=== PATIENT | male | born 1985 | race Caucasian/White ===

== ENCOUNTER 2016-08-13 19:10 | Inpatient (IN) | payer OTHER ==
[2016-08-13 20:27] LABS: % IMMATURE GRANULYOCYTES 1.7 % (0.0-1.1); ABSOLUTE IMMATURE GRANULOCYTES 0.15 10^3/uL (0.00-0.10); ADD DIFF? NO; ADD MORPH? NO; ADD SCAN? NO; ATYPICAL LYMPHOCYTE FLAG 0 (0-99); FRAGMENT RBC FLAG 10 (0-99); HEMATOCRIT 46.4 % (40.0-51.0); HEMOGLOBIN 15.5 g/dL (13.7-17.5); LEFT SHIFT FLG 10 (0-99); LIPEMIA HEMOLYSIS FLAG 80 (0-99); MEAN CELL HEMOGLOBIN 31.6 pg (27.9-34.1); MEAN CELL HEMOGLOBIN CONCENTR. 33.4 g/dL (32.4-36.7); MEAN CELL VOLUME 94.5 fL (81.5-99.8); MEAN PLATELET VOLUME 11.7 fL (8.7-11.7); PLATELET CLUMPS FLAG 20 (0-99); PLATELET COUNT 257 10^3/uL (150-400); RED BLOOD CELL COUNT 4.91 10^6/uL (4.40-6.38); RED CELL DISTRIBUTION WIDTH 13.1 % (11.5-15.2)
[2016-08-13 20:40] LABS: ANION GAP 14 mEq/L (8-16); CALCIUM 10.7 mg/dL (8.5-10.4); CARBON DIOXIDE 28 mEq/l (22-31); CHLORIDE 102 mEq/L (97-110); CREATININE 0.9 mg/dL (0.7-1.3); ETHANOL SERUM < 10 mg/dL (0-10); GLOMERULAR FILTRATION RATE > 60; GLUCOSE 87 mg/dL (70-100); SODIUM 144 mEq/L (134-144)
--- NOTE | 2016-08-13 21:44 | EDPHY ---
[id number] Vaccine: Yes Current Tetanus Diphtheria and Acellular Pertussis (TDAP): Yes Tetanus Vaccine Date: 2006 - Medical/Surgical History Hx Asthma: Yes Hx Chronic Respiratory Disease: No Hx Diabetes: No Hx Cardiac Disease: No Hx Renal Disease: No Hx Cirrhosis: No Hx Alcoholism: Yes Hx HIV/AIDS: No Hx Splenectomy or Spleen Trauma: No Other PMH: Medical- autism, depression, hypothyroid, ECT therapy. etoh, substance abuse, cutter, GERD, Reports recent Dx of Bipolar II & asthma. Surg- orbital, wrist, tonsilectomy, eustachian tubes - Social History Smoking Status: Former smoker HPI/ROS: Chief complaint: Suicidal ideation with plan History of present illness: This is a 30-year-old male who presents to the emergency department for evaluation and treatment of suicidal ideation with plan. Patient reports increasing thoughts of killing himself. He reports he wants to cut himself. He has not acted on this at this time. He denies homicidal ideation. He denies illness or injury. Review of systems: 10 point review of systems was obtained and other than described above was negative (Tawanda Ward) - Physical Exam Exam: General Appearance: Alert, nontoxic. Eyes: Pupils equal and round no pallor or injection. ENT, Mouth: Mucous membranes moist. Respiratory: There are no retractions, lungs are clear to auscultation. Cardiovascular: Regular rate and rhythm. Gastrointestinal: Abdomen is soft and non tender, no masses, bowel sounds normal. Neurological: Alert and oriented. Strength and sensation intact and symmetrical. Skin: Warm and dry, no rashes. Musculoskeletal: Neck is supple non tender. Extremities are symmetrical, full range of motion. Psychiatric: Patient is oriented X 3, there is no agitation. (Tawanda Ward) Constitutional: Initial Vital Signs Temperature (C) 37 C 08/13/16 19:13 Heart Rate 105 H 08/13/16 19:13 Respiratory Rate 20 08/13/16 19:13 Blood Pressure 160/101 H 08/13/16 19:13 O2 Sat (%) 95 08/13/16 19:13 O2 Delivery Mode Room Air Allergies/Adverse Reactions: clozapine [From Clozaril] Allergy (Verified 11/06/15 09:33) POLLEN Allergy (Mild, Uncoded 11/06/15 09:33) SEASONAL ALLERGY Home Medications: Medication Instructions Recorded Levothyroxine [Synthroid 150 mcg 150 mcg PO DAILY10 #0 tab 10/13/15 (*)] Pravastatin Sodium [Pravachol] 20 mg PO DAILY #0 tab 10/13/15 Naltrexone HCl [Revia] 50 mg PO HS #0 tab 11/17/15 Prazosin HCl [Minipress 5mg (*)] 5 mg PO HS #0 cap 11/17/15 Zolpidem Tartrate [Ambien 5MG (*)] 10 mg PO HS #0 tab 11/17/15 Cholecalciferol Vit D3 [Vitamin D3 10,000 units PO DAILY 08/13/16 2000 units tab (OTC)] Lansoprazole [Prevacid] 30 mg PO DAILY 08/13/16 [place] Carbonate ER [Eskalith Cr 1,125 mg PO HS 08/13/16 450 mg (*)] Meloxicam 15 mg PO DAILY 08/13/16 QUEtiapine FUMARATE [Seroquel 200 200 mg PO HS 08/13/16 mg (*)] Albuterol [Proventil Inhaler HFA 1 - 2 puffs IH DAILY PRN 08/14/16 (*)] Divalproex ER [Depakote ER 500 MG 1,500 mg PO HS 08/14/16 (*)] Divalproex ER [Depakote ER 500 MG 500 mg PO DAILY 08/14/16 (*)] Fluticasone/Salmeter 100/50Mcg 1 puffs IH BID 08/14/16 [Advair 100/50 (*)] Herbals/Supplements -Info Only 1 ea PO DAILY 08/14/16 QUEtiapine FUMARATE [Seroquel 100 100 mg PO TID PRN 08/14/16 mg (*)] Medical Decision Making ED Course/Re-evaluation: Patient seen under the supervision of my secondary supervising physician Dr. Aditya Looney. Patient presents to the emergency department with suicidal ideation with plan. Patient medically evaluated and cleared for psychiatric evaluation. This is pending at time of dictation. Care of patient turned over to my attending physician Dr. Cristo Sloan at end of shift. (Tawanda Ward) 2330 Care assumed by me from EDMAR Ward pending Mental Health evaluation. [address] Cantu pending evaluation. No issues during care overnight during my shift. (Cristo Sloan) Care assumed 700 plan for psych evaluation this morning, on a detainer. 720: Patient is accepted at [facility] Dr. Elias Caicedo for inpatient psychiatric hospital but not currently available at [facility], stable for transfer. 730: In consultation with psychiatric evaluation team the patient is placed on a mental health hold at this time for worsening suicidal ideation and uncertainty in ensuring own safety outside hospital setting. (Zhao Cantu) I did not see this patient while he was in the emergency department. However his care was discussed with the PA while the patient was in the department. I agree with treatment plan and management (Aditya Looney) Differential Diagnosis: Included but not limited to substance abuse, schizophrenia, bipolar, depression (Tawanda Ward) - Data Points Laboratory Results: Laboratory Results 08/13/16 20:15 08/13/16 20:15 Medications Given: Discontinued Medications Lansoprazole (Prevacid Susp (Peds)) 30 mg PO DAILY [facility] Stop: 02/10/17 13:29 Last Admin: 08/14/16 14:44 Dose: Not Given Lorazepam (Ativan) 0.5 - 1 mg PO Q6HRS PRN PRN Reason: Anxiety, Able to Take PO Stop: 02/10/17 13:23 Last Admin: 08/16/16 05:29 Dose: 1 mg Miscellaneous Medication (Meloxicam [Meloxicam]) 15 mg PO DAILY [facility] Stop: 02/10/17 13:29 Last Admin: 08/14/16 20:35 Dose: Not Given Departure - Departure Disposition: [facility] IP Clinical Impression: Bipolar disorder Condition: Good
[2016-08-13 21:52] LABS: LITHIUM 0.4 mEq/L (0.6-1.2)
[2016-08-14] MEDS ORDERED: OLANZapine DISINTEGR 10 MG TAB PO PRN (13:24)
[2016-08-14] MEDS ORDERED: NICOTINE POLACRILEX 2 MG GUM B PRN (13:24)
[2016-08-14] MEDS ORDERED: MAG HYDROX/AL HYDROX/SIMETH 30 ML UDCUP PO PRN (13:24)
[2016-08-14] MEDS ORDERED: ACETAMINOPHEN 325 MG TAB PO PRN (13:24)
[2016-08-14] MEDS ORDERED: MAGNESIUM HYDROXIDE 30 ML UDCUP PO PRN (13:24)
[2016-08-14] MEDS ORDERED: QUEtiapine FUMARATE 100 MG TAB PO PRN (13:27)
[2016-08-14] MEDS ORDERED: ALBUTEROL 60 PUFFS/8 GM MDI IH PRN (13:27)
[2016-08-14] MEDS ORDERED: LANSOPRAZOLE SUSP 3 MG/ML UDSYR (Peds) PO SCH (13:30)
[2016-08-14] MEDS ORDERED: NON-FORMULARY NEW DRUG (Meloxicam [Meloxicam] 15 MG) PO SCH (13:30)
[2016-08-14] MEDS: DIVALPROEX ER 500 MG TAB PO SCH ×2 (14:24→20:28)
[2016-08-14] MEDS: PRAVASTATIN SODIUM 20 MG TAB PO SCH (14:24)
[2016-08-14] MEDS: LEVOTHYROXINE 150 MCG TAB PO SCH (14:24)
[2016-08-14] MEDS: CHOLECALCIFEROL VIT D3 2,000 UNITS TAB/CAP PO SCH (14:24)
[2016-08-14] MEDS: LORazepam 0.5 MG TAB PO PRN ×2 (14:24→20:27)
--- NOTE | 2016-08-14 19:03 | BCON ---
[f rep st] BEHAVIORAL HEALTH CONSULTATION INTERNAL MEDICINE CONSULTATION NOTE DATE OF CONSULTATION: 08/14/2016 REFERRING PHYSICIAN: Carol Calderon MD REASON FOR CONSULTATION: Medical clearance for inpatient behavioral health stay. HISTORY OF PRESENT ILLNESS: Mr. Cabral came to the emergency department due to suicidal ideation and thoughts of self-harm. He reported that he was at the peak of a manic episode. He was evaluated by the mental health team and admitted for further psychiatric care. He is currently without any acute medical complaints. PAST MEDICAL HISTORY: 1. Asthma. 2. Gastroesophageal reflux disorder. 3. Dyslipidemia. 4. Hypothyroidism. 5. Clostridium difficile diarrhea. 6. Seasonal allergies. 7. Aspiration pneumonia. 8. History of polysubstance abuse. 9. Central auditory processing disorder. 10. Obstructive sleep apnea. PAST SURGICAL HISTORY: 1. Tonsillectomy. 2. Eustachian tube placements. 3. Bilateral wrist ORIF. 4. Repair of a facial fracture. MEDICATIONS: At home: 1. Divalproex ER 500 mg daily and 1500 mg q.h.s. 2. Albuterol 1-2 puffs daily p.r.n. 3. Fluticasone/salmeterol 1 puff b.i.d. 4. Zolpidem 10 mg q.h.s. 5. Prazosin 5 mg q.h.s. 6. Pravastatin 20 mg daily. 7. Naltrexone 50 mg q.h.s. 8. Levothyroxine 150 mcg daily. 9. Quetiapine 100 mg t.i.d. p.r.n. and 200 mg q.h.s. 10. Meloxicam 50 mg daily. 11. Arbela 1125 mg p.o. q.h.s. 12. Lansoprazole 30 mg p.o. daily. 13. Cholecalciferol 12090 units p.o. daily. ALLERGIES: There is an allergy listed to clozapine. SOCIAL HISTORY: He lives in a [facility] supported living situation. He has a history of alcohol and tobacco, but has been abstinent from both of these. Alcohol he reports for 3 and half years and tobacco most recently with an E cigarette, which he stopped using in November of last year. FAMILY HISTORY: Noncontributory. REVIEW OF SYSTEMS: Other than his thoughts of self-harm, 10-point review of systems was conducted and was negative. He had been intentionally losing weight , but reports this has been a plateau and he intends to get back to the gym to lose more weight once his acute psychiatric condition is stabilized. PHYSICAL EXAM: VITAL SIGNS: Blood pressure is 142/82, and has ranged as high as 161/105 and as low as 137/71 over the past 24 hours or so since he presented to the emergency department. Heart rate is 94, respiratory rate is 16 , oxygen saturation is 94% on room air, temperature is 36.6 degrees centigrade. His weight was 106.6 kg for a body mass index of 30. GENERAL: This is a well-nourished, well-developed, obese man appears chronologic age, cooperative, in no acute distress. HEENT: Extraocular movements are intact. Pupils are equal, round and reactive to light. Mucous membranes are moist. Dentition is in good condition. NECK: Supple. HEART: There is a regular rate and rhythm with no murmurs, rubs, or gallops. LUNGS: Clear to auscultation bilaterally. ABDOMEN: Soft, nontender, nondistended with normoactive bowel sounds. EXTREMITIES: There is no cyanosis, clubbing, or edema. Radial and dorsalis pedis pulses are 2+ bilaterally. NEUROLOGIC: He is alert and oriented x3. He has poor eye contact and a flat affect. Cranial nerves 2-12 are grossly intact. There is no focal weakness. Sensation is intact to light touch. LABORATORY DATA: Laboratory studies drawn in the emergency department: CBC was overall within normal limits. There was a very minor relative elevation of absolute monocytes of no clinical significance. Serum chemistry revealed normal renal function and electrolytes with the exception of a slightly high calcium at 10.7. Phosphorus was normal at 4.4. Toxicology in the serum revealed a low lithium level of 0.4 and absent ethyl alcohol. Urine toxicology was negative for any substances of abuse. ASSESSMENT AND PLAN: 1. Mental health issues: Pending further evaluation and management per Psychiatry the mental health team. 2. Obesity with recent weight loss: Encouraged him to continue his diet and exercise. He reports that he has given up sugary drinks, which has made a difference, and it is hoped that he will be able to continue to lose weight. 3. Obstructive sleep apnea with recent sleep study: He reports that he is due for 1 more sleep study to finally get him going on CPAP at the end of this month and this would be greatly in his best interest. 4. Hypertension versus elevated blood pressure: He is on Prazosin. If his blood pressure remains elevated, would advise starting a first-line agent such as a calcium channel nicola, ERIN-inhibitor, or diuretic. Might be cautious regarding diuretic with concurrent lithium therapy. Continue to monitor his blood pressure. 5. Dyslipidemia: Would continue his pravastatin. 6. Asthma: Would continue his inhalers. 7. Hypothyroidism: Continue levothyroxine. 8. Hypercalcemia: This is mild. He has no symptoms. It might be related to lithium therapy and no further evaluation is indicated at present. I see no medical contraindications to Mr. Cabral's continued stay in the inpatient behavioral health unit, or to any psychiatric medications or procedures. Thank you very much for including me in the care of Mr. Cabral, and please do not hesitate to contact me or the hospitalist service should there be need for further medical evaluation. /[id number]/MODL MTDD
[2016-08-14] MEDS: FLUTICASONE/SALMETER 100/50MCG DISKUS IH SCH ×3 (20:25→20:36)
[2016-08-14] MEDS: LITHIUM CARBONATE ER 450 MG TAB PO SCH (20:27)
[2016-08-14] MEDS: QUEtiapine FUMARATE 200 MG TAB PO SCH (20:29)
[2016-08-14] MEDS: PRAZOSIN HCL 5 MG CAP PO SCH (20:29)
[2016-08-14] MEDS: ZOLPIDEM TARTRATE 5 MG TAB PO SCH (20:29)
[2016-08-14] MEDS: NALTREXONE HCL 50 MG TAB PO SCH (20:29)
[2016-08-14] MEDS: Meloxicam [Meloxicam] 15 MG PO SCH (20:29)
[2016-08-15] MEDS: DIVALPROEX ER 500 MG TAB PO SCH ×2 (08:32→20:57)
[2016-08-15] MEDS: CHOLECALCIFEROL VIT D3 2,000 UNITS TAB/CAP PO SCH (08:33)
[2016-08-15] MEDS: PRAVASTATIN SODIUM 20 MG TAB PO SCH (08:33)
[2016-08-15] MEDS: PANTOPRAZOLE SODIUM 40 MG TAB PO SCH (08:34)
[2016-08-15] MEDS: Meloxicam [Meloxicam] 15 MG PO SCH (08:34)
[2016-08-15] MEDS: FLUTICASONE/SALMETER 100/50MCG DISKUS IH SCH ×2 (08:35→21:02)
[2016-08-15] MEDS ORDERED: LANSOPRAZOLE SUSP 30MG/10ML UDSYR (Adult) PO SCH (09:00)
[2016-08-15] MEDS: LEVOTHYROXINE 150 MCG TAB PO SCH (10:50)
[2016-08-15] MEDS: LORazepam 0.5 MG TAB PO PRN ×2 (11:06→17:14)
--- NOTE | 2016-08-15 11:43 | SOAPPROG ---
SOAP Progress Note Assessment/Plan: Assessment: Pt is a 30 y/o S C male known well to this MD who has a hx of self harm who felt like harming self and was put on an M1. Plan:Pt contracts for safety but has / SI will con't current meds-no current sx of shahnaz/psychosis at this time 08/15/16 11:40 Subjective: "Terrible. I did not sleep well." Objective: Vital Signs Temp Pulse Resp BP Pulse Ox 36.4 C 97 14 149/70 H 96 08/15/16 02:58 08/15/16 02:58 08/15/16 02:58 08/15/16 02:58 08/15/16 02:58 Pt is A+O x4 mood-depressed/anxious affect-blunted denies A/V H + SI but contracts for safety thoughts-logical, concrete speech-monotone conc-fair memory-intact no PADMA no sx psychosis/shahnaz I/J-fair-good - Time Spent With Patient Time Spent With Patient: 25' - Pending Discharge Pending Discharge Within 24 Hours: No Pending Discharge Within 48 Hours: No ICD10 Worksheet Patient Problems: Problems Problem Status Diagnosed Bipolar disorder Acute Asperger's syndrome Acute Bipolar disorder with severe shahnaz Acute Depression Acute Manic behavior Acute allergy to clozapine Acute
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
[2016-08-15] MEDS: LITHIUM CARBONATE ER 450 MG TAB PO SCH (20:57)
[2016-08-15] MEDS: QUEtiapine FUMARATE 200 MG TAB PO SCH (20:57)
[2016-08-15] MEDS: PRAZOSIN HCL 5 MG CAP PO SCH (20:58)
[2016-08-15] MEDS: NALTREXONE HCL 50 MG TAB PO SCH (20:58)
[2016-08-15] MEDS: ZOLPIDEM TARTRATE 5 MG TAB PO SCH (20:58)
[2016-08-16] MEDS: LORazepam 0.5 MG TAB PO PRN ×3 (05:29→15:12)
[2016-08-16] MEDS: Meloxicam [Meloxicam] 15 MG PO SCH (08:22)
[2016-08-16] MEDS: FLUTICASONE/SALMETER 100/50MCG DISKUS IH SCH ×2 (08:22→21:01)
[2016-08-16] MEDS: DIVALPROEX ER 500 MG TAB PO SCH ×2 (08:23→21:01)
[2016-08-16] MEDS: PRAVASTATIN SODIUM 20 MG TAB PO SCH (08:24)
[2016-08-16] MEDS: PANTOPRAZOLE SODIUM 40 MG TAB PO SCH (08:24)
[2016-08-16] MEDS: CHOLECALCIFEROL VIT D3 2,000 UNITS TAB/CAP PO SCH (08:24)
[2016-08-16] MEDS: LEVOTHYROXINE 150 MCG TAB PO SCH (09:12)
--- NOTE | 2016-08-16 10:23 | SOAPPROG ---
SOAP Progress Note Assessment/Plan: Assessment: Pt is a 30 y/o S C male known well to this MD who has a hx of self harm and SI and Aspergers who felt like harming self and was put on an M1. Plan:Pt put on a 1: 1 as had active SI after having a nightmare of using drugs and pulled his hair and punched the wall will con't 02 at night-pt states it helped him sleep better will change Ativan to Q4 hours prn anxiety pt has agreed to sign in VOL 08/16/16 10:19 Subjective: "I had a nightmare and self harmed last night." Objective: Vital Signs Temp Pulse Resp BP Pulse Ox 36.3 C 77 16 122/60 H 99 08/16/16 06:19 08/16/16 06:19 08/16/16 06:19 08/16/16 06:19 08/16/16 06:19 Pt is A+O x4 mood-neutral affect-blunted denies A/V H no delusions slept 7 hours but had a nightmare thoughts-concrete, logical speech-monotone + active SI and is on a 1:1 memory-intact conc-fair no sx psychosis/shahnaz no HI I/J-fair-good - Time Spent With Patient Time Spent With Patient: 25' - Pending Discharge Pending Discharge Within 24 Hours: No Pending Discharge Within 48 Hours: No ICD10 Worksheet Patient Problems: Problems Problem Status Diagnosed Bipolar disorder Acute Asperger's syndrome Acute Bipolar disorder with severe shahnaz Acute Depression Acute Manic behavior Acute allergy to clozapine Acute
[2016-08-16] MEDS: LITHIUM CARBONATE ER 450 MG TAB PO SCH (21:02)
[2016-08-16] MEDS: ZOLPIDEM TARTRATE 5 MG TAB PO SCH (21:02)
[2016-08-16] MEDS: PRAZOSIN HCL 5 MG CAP PO SCH (21:02)
[2016-08-16] MEDS: QUEtiapine FUMARATE 200 MG TAB PO SCH (21:03)
[2016-08-16] MEDS: NALTREXONE HCL 50 MG TAB PO SCH (21:03)
[2016-08-17] MEDS: CHOLECALCIFEROL VIT D3 2,000 UNITS TAB/CAP PO SCH (09:44)
[2016-08-17] MEDS: DIVALPROEX ER 500 MG TAB PO SCH ×2 (09:45→17:47)
[2016-08-17] MEDS: LEVOTHYROXINE 150 MCG TAB PO SCH (09:45)
[2016-08-17] MEDS: PRAVASTATIN SODIUM 20 MG TAB PO SCH (09:45)
[2016-08-17] MEDS: PANTOPRAZOLE SODIUM 40 MG TAB PO SCH (09:45)
[2016-08-17] MEDS: FLUTICASONE/SALMETER 100/50MCG DISKUS IH SCH ×2 (09:46→20:58)
[2016-08-17] MEDS: Meloxicam [Meloxicam] 15 MG PO SCH (09:46)
[2016-08-17] MEDS: LORazepam 0.5 MG TAB PO PRN ×2 (11:11→17:50)
--- NOTE | 2016-08-17 11:37 | SOAPPROG ---
SOAP Progress Note Assessment/Plan: Assessment: Pt is a 30 y/o S C male known well to this MD who has a hx of self harm and SI and Aspergers who felt like harming self and was put on an M1. Plan: D/C 1:1-pt sarahy for safety will con't 02 at night-pt states it helped him sleep better con't Ativan to Q4 hours prn anxiety pt is [facility] staff to come and see pt tomorrow 08/18/16 08/17/16 11:34 Subjective: pt feels more safe today and wants to take a shower Objective: Vital Signs Temp Pulse Resp BP Pulse Ox 36.7 C 110 H 16 134/73 H 94 08/17/16 09:30 08/17/16 09:30 08/17/16 09:30 08/17/16 09:30 08/17/16 09:30 Pt is A+O x4 mood-neutral affect-blunted no A/V H decrease SI-contracts for safety no HI no sx psychosis/shahnaz thoughts-logical speech-monotone no PADMA memory-intact slept 8+ hours good appetite I/J-fair - Time Spent With Patient Time Spent With Patient: 25' - Pending Discharge Pending Discharge Within 24 Hours: No Pending Discharge Within 48 Hours: Yes Pending Discharge Date: 08/19/16 Pending Discharge Time: 11:00 ICD10 Worksheet Patient Problems: Problems Problem Status Diagnosed Bipolar disorder Acute Asperger's syndrome Acute Bipolar disorder with severe shahnaz Acute Depression Acute Manic behavior Acute allergy to clozapine Acute
[2016-08-17] MEDS: LITHIUM CARBONATE ER 450 MG TAB PO SCH (17:47)
[2016-08-17] MEDS: QUEtiapine FUMARATE 200 MG TAB PO SCH (20:58)
[2016-08-17] MEDS: PRAZOSIN HCL 5 MG CAP PO SCH (20:58)
[2016-08-17] MEDS: ZOLPIDEM TARTRATE 5 MG TAB PO SCH (20:58)
[2016-08-17] MEDS: NALTREXONE HCL 50 MG TAB PO SCH (20:58)
[2016-08-18] MEDS: CHOLECALCIFEROL VIT D3 2,000 UNITS TAB/CAP PO SCH (08:02)
[2016-08-18] MEDS: DIVALPROEX ER 500 MG TAB PO SCH (08:02)
[2016-08-18] MEDS: PANTOPRAZOLE SODIUM 40 MG TAB PO SCH (08:03)
[2016-08-18] MEDS: PRAVASTATIN SODIUM 20 MG TAB PO SCH (08:03)
[2016-08-18 08:24] VITALS: BP 116/74; PULSE 78; RESP 18; TEMP 97.9; O2SAT 91
--- NOTE | 2016-08-18 11:13 | SOAPPROG ---
SOAP Progress Note Assessment/Plan: Assessment: Pt is a 30 y/o S C male known well to this MD who has a hx of self harm and SI and Aspergers who felt like harming self and was put on an M1. Plan: pt off 1:1 and denies any more SI will con't 02 at night-pt states it helped him sleep better con't Ativan to Q4 hours prn anxiety pt is [facility] staff to come and see pt today 08/18/16 11:10 Subjective: "Ready to discharge." Objective: Vital Signs Temp Pulse Resp BP Pulse Ox 36.6 C 78 18 116/74 91 L 08/18/16 08:07 08/18/16 08:07 08/18/16 08:07 08/18/16 08:07 08/18/16 08:07 Pt is A+O x4 mood-neutral affect-constricted denies S/H I denies A/V H thoughts-concrete, logical sleep/appetite-good no sx psychosis/shahnaz memory-intact no PADMA I/J-improved - Time Spent With Patient Time Spent With Patient: 25' - Pending Discharge Pending Discharge Within 24 Hours: Yes Pending Discharge Within 48 Hours: Yes Pending Discharge Date: 08/19/16 Pending Discharge Time: 11:00 ICD10 Worksheet Patient Problems: Problems Problem Status Diagnosed Bipolar disorder Acute Asperger's syndrome Acute Bipolar disorder with severe shahnaz Acute Depression Acute Manic behavior Acute allergy to clozapine Acute
[2016-08-18] MEDS: FLUTICASONE/SALMETER 100/50MCG DISKUS IH SCH (11:55)
[2016-08-18] MEDS: Meloxicam [Meloxicam] 15 MG PO SCH (11:55)
[2016-08-18] MEDS: LEVOTHYROXINE 150 MCG TAB PO SCH (11:56)
--- NOTE | 2016-08-18 14:56 | BDS ---
[f rep st] BEHAVIORAL HEALTH DISCHARGE SUMMARY CHIEF COMPLAINT: "I am having thoughts of self-harm." HISTORY OF PRESENT ILLNESS: Patient is a 30-year-old single male, well-known to this MD fr om multiple [address] admissions in the past, who presented to the [facility] with 2 staff from the [facility] with concerns about increased self-harm thoughts and suicidal thoughts, and being more triggered lately. Patient was placed on an M1 hold in the ED, which noted "the patient with numerou s prior psych hospitalizations and history of mood disorder, NOS, Asperger syndrome along with a his tory of suicide attempts and cutting behavior who was initially brought to [facility] by [facility] staff due to patient endorsing worsening suicidal ideation uncertainty ensuring his own safety outside hosp ital setting." Patient reported he recently thought a plan to steal a knife from the cooking group t o cut himself with. He did not act on this plan and informed [facility] staff about this. Patient re ports multiple stressors, such as his family considering tapering him from the [facility] in t he future, his parents not buying him a car. He recently got evicted and his parents had to buy him a condo, and an anniversary of his friend's . ADMISSION DIAGNOSES: [place] I: 1. Mood disorder, not otherwise specified. 2. Asperger syndrome. 3. Polysubstance use disorder, severe, in full sustained remission. [place] II: Borderline personality disorder. [place] III: 1. Recent diagnosis of sleep apnea. 2. History of asthma. 3. Gastrointestinal reflux disease. 4. Hypothyroidism. 5. Seasonal allergies. [place] IV: Chronic mental illness. [place] V: 20. HOSPITAL COURSE: Patient was kept on all his outpatient medications which were albuterol inhaler 2 puffs daily, vitamin D3 at 1000 units daily, Depakote 500 mg daily and 1500 mg q.h.s., Advair 1 puff b.i.d., lorazepam was started 0.5 to 1 mg q.4 hours p.r.n. anxiety which helped a lot. He was kept on Synthroid 150 mcg, lithium 1125 mg q.h.s., meloxicam 50 mg daily, ReVia 50 mg q.h.s., Pravachol 2 0 mg daily, Minipress 5 mg q.h.s., Seroquel 100 mg t.i.d. p.r.n., Seroquel 200 mg q.h.s., and Ambien 10 mg q.h.s. Patient reported Seroquel p.r.n. was not working, so Ativan was added with good result s. Patient needed to be on a 1-to-1 less than 24 hours for active thoughts of wanting to hurt himsel f. Patient is well-known to our unit and always will tell staff when he is feeling like he wants to hurt himself and asks for a 1-to-1. Patient's sleep and appetite improved. He did have a nightmare 1 night and pulled his hair and punched the wall; however, his sleep prior to admission was improved. He participated in some groups and activities. He was compliant with all meds. There were no symp toms of psychosis or shahnaz throughout his hospitalization. The only med change was Ativan was added with good results with no side effects. Patient signed in voluntarily when his M1 . [facility] staff came and saw him day of discharge and felt he was stable for discharge, and patient requested discharge. MENTAL STATUS ON DISCHARGE: Patient is alert and oriented x4. Mood is euthymic. Affect is constri cted. Patient denies suicidal or homicidal ideation. Denies auditory or visual hallucinations. Tho ughts are concrete and logical. Sleep and appetite are good. No symptoms of psychosis or shahnaz. Me matias intact. No loosening of associations. Insight and judgment are improved. Patient has classic symptoms of Asperger's disorder, such as poor social cues and poor social relatedness. DISCHARGE MEDICATIONS: Ativan 0.5 to 1 mg q.4 hours p.r.n. anxiety. DISCHARGE: Patient was discharged voluntarily to [facility] staff. He is psychiatrically and medical ly stable for discharge. He will follow up with Dr. Mcdonnell and the [facility] team. He was dischar [facility] voluntarily. /[id number]/MODL
== END 2016-08-18 14:15 | disposition home or self-care (01) | DRG 885 ==
LOC: BBEH 08-14 12:30
PROVIDERS: ADMIT Psychiatry & Neurology Psychiatry; ATTEND Psychiatry & Neurology Psychiatry
DX: F39 Unspecified mood [affective] disorder (principal); F84.5 Asperger's syndrome; E03.9 Hypothyroidism, unspecified; K21.9 Gastro-esophageal reflux disease without esophagitis; J45.909 Unspecified asthma, uncomplicated; G47.33 Obstructive sleep apnea (adult) (pediatric); E78.5 Hyperlipidemia, unspecified; Z87.01 Personal history of pneumonia (recurrent); Z87.891 Personal history of nicotine dependence; E66.9 Obesity, unspecified; Z68.30 Body mass index [BMI] 30.0-30.9, adult
CPT/HCPCS: 80305; G0480

== ENCOUNTER 2016-09-10 21:47 | Emergency (ER) | payer OTHER ==
[2016-09-10] MEDS ORDERED: LORazepam 2 MG/ML INJ IVP ONE (22:28)
--- NOTE | 2016-09-10 22:31 | EDPHY ---
H & P Stated Complaint: si thoughts of self harm Source: Patient, Other Exam Limitations: No limitations - Personal History Current Tetanus/Diphtheria Vaccine: Yes Current Tetanus Diphtheria and Acellular Pertussis (TDAP): Yes Tetanus Vaccine Date: 2006 - Medical/Surgical History Hx Asthma: Yes Hx Chronic Respiratory Disease: No Hx Diabetes: No Hx Cardiac Disease: No Hx Renal Disease: No Hx Cirrhosis: No Hx Alcoholism: Yes Hx HIV/AIDS: No Hx Splenectomy or Spleen Trauma: No Other PMH: Medical- autism, depression, hypothyroid, ECT therapy. etoh, substance abuse, cutter, GERD, Reports recent Dx of Bipolar II & asthma. Surg- orbital, wrist, tonsilectomy, eustachian tubes - Social History Smoking Status: Former smoker HPI/ROS: CHIEF COMPLAINT: Suicidal ideation HISTORY OF PRESENT ILLNESS: history of bipolar 2 with active suicidal ideation. He has a long history of this and has extensive care and help with this. Over the past week he has had increasing suicidal ideations. All today actually grabbed a pair of scissors to stab himself but then stopped. Give the scissors to his remaining contacted his counselors. Counts are bedside and brought him into the emergency department for evaluation and treatment. He is well established in this system and is voluntarily here. There is no M1. Reports taking this over the past week with worsening thoughts. He did not actually harm himself he did not take any pills. The patient has extensive outpatient care including group therapy as he also has Asperger's syndrome. He denies any other specific complaints. He is aware of these thoughts and does not want to act upon them. No other associated complaints or modifying factors regarding this. He does have a secondary complaint of left foot pain. He rolled his foot about a week ago and has had pain in the 5th metatarsal ever since. [id number] pain. Worse with palpation. No pain in the ipsilateral heel, slater or knee. No x-rays at this point. PSYCHIATRIC DIAGNOSES: Bipolar II, Suicidal ideation, Self-harm REVIEW OF SYSTEMS: Ten systems reviewed and are negative unless otherwise noted in the HPI EXAMINATION General Appearance: Alert, no distress Head: normocephalic, atraumatic Eyes: Pupils equal and round, no conjunctival pallor or injection ENT, Mouth: Mucous membranes moist Neck: Normal inspection, supple, non-tender Respiratory: Lungs are clear to auscultation . No wheezing, rhonchi or crackles. Cardiovascular: Regular rate and rhythm . No murmur Gastrointestinal: Abdomen is soft and nontender Neurological: A&O, nonfocal, normal gait Skin: Warm and dry, no rash. There are well-healed lacerations to bilateral anterior forearms consistent with history of cutting. Extremities: mild tenderness at the base of the 5th metatarsal on the left foot. There is no crepitus. There is no deformity. Neurovascular intact distally. There is no ipsilateral he will, malleolar or knee tenderness. Range of motion about the ankle knee is fully intact. Psychiatric: Flat affect. Suicidal ideation with thoughts of cutting himself with scissors. No intent. DIFFERENTIAL DIAGNOSES: Including but not limited to Suicidal ideation, bipolar with shahnaz, depression, recurrent self-harm MDM: suicidal ideation in a patient with a history of bipolar, previous suicidal attempt, and cutting. Recognized his thoughts and did seek help. His Counselors are with him at bedside. They recognize he actually has been working on this and has improved with his self awareness. 11:15 p.m. labs have returned and he is medically cleared. [place] is actually slightly low. X-ray of the left foot reviewed by me reveals no acute fracture. I will place him in a postop shoe And recommend orthopedic follow-up for definitive care.. He will now await evaluation by [facility]. 11:55 p.m. patient remains resting comfortably awaiting his psychiatric evaluation. He will likely placed inpatient for further care. Have discussed the case with Dr. Maguire. At this point he will assume care of the patient. Please see his note for final disposition. SUPERVISION: Patient was evaluated in conjunction with the supervising physician. Please see their note for details. (Vinayak Ayala) Constitutional: Initial Vital Signs Temperature (C) 36.8 C 09/10/16 22:06 Heart Rate 101 H 09/10/16 22:06 Respiratory Rate 18 09/10/16 22:06 Blood Pressure 147/014 H 09/10/16 22:06 O2 Sat (%) 95 09/10/16 22:06 O2 Delivery Mode Room Air Allergies/Adverse Reactions: clozapine [From Clozaril] Allergy (Verified 11/06/15 09:33) POLLEN Allergy (Mild, Uncoded 11/06/15 09:33) SEASONAL ALLERGY Home Medications: Medication Instructions Recorded Lansoprazole [Prevacid] 30 mg PO DAILY 08/13/16 Herbals/Supplements -Info Only 1 ea PO DAILY 08/14/16 Albuterol [Proventil Inhaler HFA 2 puffs IH DAILY PRN #0 mdi 08/18/16 (*)] Cholecalciferol Vit D3 [Vitamin D3 10,000 units PO DAILY #0 each 08/18/16 2000 units tab (OTC)] Divalproex ER [Depakote ER 500 MG 1,500 mg PO HS #0 tab 08/18/16 (*)] Divalproex ER [Depakote ER 500 MG 500 mg PO DAILY #0 tab 08/18/16 (*)] Fluticasone/Salmeter 100/50Mcg 1 puffs IH BID #0 disk 08/18/16 [Advair 100/50 (*)] LORazepam [Ativan (*)] 0.5 - 1 mg PO Q4HRS PRN #45 tab 08/18/16 Levothyroxine [Synthroid 150 mcg 150 mcg PO DAILY10 #0 tab 08/18/16 (*)] [place] Carbonate ER [Eskalith Cr 1,125 mg PO HS #0 tab 08/18/16 450 mg (*)] Meloxicam [Meloxicam] 15 mg PO DAILY 08/18/16 Naltrexone HCl [Revia] 50 mg PO HS #0 tab 08/18/16 Pravastatin Sodium [Pravachol] 20 mg PO DAILY #0 tab 08/18/16 Prazosin HCl [Minipress 5mg (*)] 5 mg PO HS #0 cap 08/18/16 QUEtiapine FUMARATE [Seroquel 100 100 mg PO TID PRN #0 tab 08/18/16 mg (*)] QUEtiapine FUMARATE [Seroquel 200 200 mg PO HS #0 tab 08/18/16 mg (*)] Zolpidem Tartrate [Ambien 5MG (*)] 10 mg PO HS #0 tab 08/18/16 Medical Decision Making ED Course/Re-evaluation: 0618AM 09/11/16: No acute events overnight. Patient signed over to Dr. Luis at 7:00 a.m. shift change. (Ji Maguire) Other Provider: Patient's care transferred to wa at 7:[address] Ji Maguire. Patient has a history of bipolar disease and is currently having suicidal thoughts. He has getting evaluated this morning. He has been medically cleared. He is not on a hold. 9:00 a.m. the patient has been evaluated by [facility]. They plan to release him back [facility]. There staff is all the way to pick him up. He is not on a hold. (Yong Luis) - Data Points Laboratory Results: Laboratory Results 09/10/16 22:35 09/10/16 22:35 09/10/16 09/10/16 22:35 22:20 WBC 10.36 H 10^3/uL (3.80-9.50) RBC 4.77 10^6/uL (4.40-6.38) Hgb 15.0 g/dL (13.7-17.5) Hct 46.0 % (40.0-51.0) MCV 96.4 fL (81.5-99.8) MCH 31.4 pg (27.9-34.1) MCHC 32.6 g/dL (32.4-36.7) RDW 13.1 % (11.5-15.2) Plt Count 240 10^3/uL (150-400) MPV 12.2 H fL (8.7-11.7) Neut % (Auto) 55.3 % (39.3-74.2) Lymph % (Auto) 34.7 % (15.0-45.0) Sully % (Auto) 8.5 % (4.5-13.0) Eos % (Auto) 0.6 % (0.6-7.6) Baso % (Auto) 0.4 % (0.3-1.7) Nucleat RBC Rel Count 0.0 % (0.0-0.2) Absolute Neuts (auto) 5.74 10^3/uL (1.70-6.50) Absolute Lymphs (auto) 3.59 H 10^3/uL (1.00-3.00) Absolute Monos (auto) 0.88 H 10^3/uL (0.30-0.80) Absolute Eos (auto) 0.06 10^3/uL (0.03-0.40) Absolute Basos (auto) 0.04 10^3/uL (0.02-0.10) Absolute Nucleated RBC 0.00 10^3/uL (0-0.01) Immature Gran % 0.5 % (0.0-1.1) Immature Gran # 0.05 10^3/uL (0.00-0.10) Sodium 150 H mEq/L (134-144) Potassium 4.0 mEq/L (3.5-5.2) Chloride 111 H mEq/L (97-110) Carbon Dioxide 24 mEq/l (22-31) Anion Gap 15 mEq/L (8-16) BUN 12 mg/dL (7-23) Creatinine 0.8 mg/dL (0.7-1.3) Estimated GFR > 60 Glucose 92 mg/dL (70-100) Calcium 10.8 H mg/dL (8.5-10.4) Phosphorus 3.9 mg/dL (2.5-4.5) Salicylates < 1.0 L mg/dL (2.0-20.0) Urine Opiates Screen NEGATIVE (NEGATIVE) Acetaminophen < 10 L mcg/mL (10.0-30.0) Urine Barbiturates NEGATIVE (NEGATIVE) Ur Phencyclidine Scrn NEGATIVE (NEGATIVE) Ur Amphetamine Screen NEGATIVE (NEGATIVE) U Benzodiazepines Scrn NON-NEGATIVE H (NEGATIVE) [place] 0.5 L mEq/L (0.6-1.2) Urine Cocaine Screen NEGATIVE (NEGATIVE) U Marijuana (THC) Screen NEGATIVE (NEGATIVE) Ethyl Alcohol < 10 mg/dL (0-10) Medications Given: Discontinued Medications Lorazepam (Ativan Injection) 1 mg IVP EDNOW ONE Stop: 09/10/16 22:29 Last Admin: 09/10/16 22:51 Dose: Not Given Lorazepam (Ativan) 1 mg PO EDNOW ONE Stop: 09/10/16 22:46 Last Admin: 09/10/16 22:50 Dose: 1 mg Departure - Departure Disposition: Home, Routine, Self-Care Clinical Impression: Foot sprain Qualifiers: Encounter type: initial encounter Laterality: left Qualifier Code: (S93.602A) Unspecified sprain of left foot, initial encounter Bipolar disorder Qualifiers: Active/Remission status: currently active Current bipolar episode type: depressed Current episode severity: moderate Qualifier Code: (F31.32) Bipolar disorder, current episode depressed, moderate Condition: Fair Instructions: Bipolar Disorder (ED), Foot Sprain (ED) Referrals: Sami Armenta MD [Primary Care Provider] - As per Instructions Bonilla Dillon MD [Medical Doctor] - As per Instructions
[2016-09-10 22:43] LABS: % IMMATURE GRANULYOCYTES 0.5 % (0.0-1.1); ABSOLUTE IMMATURE GRANULOCYTES 0.05 10^3/uL (0.00-0.10); ADD DIFF? NO; ADD MORPH? NO; ADD SCAN? NO; ATYPICAL LYMPHOCYTE FLAG 0 (0-99); FRAGMENT RBC FLAG 0 (0-99); LEFT SHIFT FLG 0 (0-99); LIPEMIA HEMOLYSIS FLAG 80 (0-99); MEAN CELL HEMOGLOBIN 31.4 pg (27.9-34.1); MEAN CELL HEMOGLOBIN CONCENTR. 32.6 g/dL (32.4-36.7); MEAN CELL VOLUME 96.4 fL (81.5-99.8); MEAN PLATELET VOLUME 12.2 fL (8.7-11.7); PLATELET CLUMPS FLAG 0 (0-99); PLATELET COUNT 240 10^3/uL (150-400); RED BLOOD CELL COUNT 4.77 10^6/uL (4.40-6.38); RED CELL DISTRIBUTION WIDTH 13.1 % (11.5-15.2)
[2016-09-10] MEDS ORDERED: LORazepam 1 MG TAB PO ONE (22:45)
[2016-09-10 22:54] LABS: ANION GAP 15 mEq/L (8-16); CALCIUM 10.8 mg/dL (8.5-10.4); CARBON DIOXIDE 24 mEq/l (22-31); CHLORIDE 111 mEq/L (97-110); CREATININE 0.8 mg/dL (0.7-1.3); ETHANOL SERUM < 10 mg/dL (0-10); GLOMERULAR FILTRATION RATE > 60; GLUCOSE 92 mg/dL (70-100); LITHIUM 0.5 mEq/L (0.6-1.2); SALICYLATE < 1.0 mg/dL (2.0-20.0); SODIUM 150 mEq/L (134-144)
--- NOTE | 2016-09-10 23:40 | DX ---
Left foot, 3 views History: Sprain, fifth metatarsal pain, skiing one month ago Comparison: None. Findings: No acute fracture or dislocation identified. Toes, metatarsals and tarsal bones demonstrate no acute fracture. Specifically the fifth metatarsal appears intact. Impression: 1. No definite acute fracture. 2. Recommend additional imaging if symptoms persist, if clinically indicated.
[2016-09-11 07:41] VITALS: BP 114/86; PULSE 101; RESP 16; TEMP 97.9; O2SAT 97
== END 2016-09-11 10:31 | disposition home or self-care (01) ==
DX: F31.32 Bipolar disorder, current episode depressed, moderate (principal); S93.602A Unspecified sprain of left foot, initial encounter; J45.909 Unspecified asthma, uncomplicated; Z87.891 Personal history of nicotine dependence; X58.XXXA Exposure to other specified factors, initial encounter
CPT/HCPCS: 80305; G0480; L3260

== ENCOUNTER 2016-10-27 11:20 | Inpatient (IN) | payer OTHER, MEDICAID ==
[2016-10-27 11:56] LABS: % IMMATURE GRANULYOCYTES 0.3 % (0.0-1.1); ABSOLUTE IMMATURE GRANULOCYTES 0.03 10^3/uL (0.00-0.10); ADD DIFF? NO; ADD MORPH? NO; ADD SCAN? NO; ATYPICAL LYMPHOCYTE FLAG 0 (0-99); FRAGMENT RBC FLAG 0 (0-99); HEMATOCRIT 45.6 % (40.0-51.0); LEFT SHIFT FLG 0 (0-99); LIPEMIA HEMOLYSIS FLAG 80 (0-99); MEAN CELL HEMOGLOBIN 31.1 pg (27.9-34.1); MEAN CELL HEMOGLOBIN CONCENTR. 32.9 g/dL (32.4-36.7); MEAN CELL VOLUME 94.6 fL (81.5-99.8); MEAN PLATELET VOLUME 11.8 fL (8.7-11.7); PLATELET CLUMPS FLAG 10 (0-99); PLATELET COUNT 306 10^3/uL (150-400); RED BLOOD CELL COUNT 4.82 10^6/uL (4.40-6.38); RED CELL DISTRIBUTION WIDTH 12.8 % (11.5-15.2)
--- NOTE | 2016-10-27 11:58 | EDPHY ---
H & P Smoking Status: Former smoker Time Seen by Provider: 10/27/16 11:27 HPI/ROS: CHIEF COMPLAINT: Manic, feeling suicidal HISTORY OF PRESENT ILLNESS: 31-year-old male presents to the emergency department with a member from [facility] feeling manic and suicidal. He does not have a plan. He states yesterday however he took a dumbbell and started smashing his left hand. He feels like breaking his own bones. The patient has felt increasingly manic and suicidal over last few weeks. He denies chest pain or difficulty breathing. Denies abdominal pain. Denies neck or back pain. He describes pain in his left hand from the trauma yesterday. He is right-hand dominant. He did take Haldol prior to coming. REVIEW OF SYSTEMS: Constitutional: No fever, no chills. Eyes: No double or blurry vision. ENT: No sore throat. Respiratory: No cough, no shortness of breath. Cardiac: No chest pain. Gastrointestinal: No abdominal pain, vomiting or diarrhea. Genitourinary: No dysuria. Musculoskeletal: No neck or back pain. Skin: No rashes. Neurological: No headache. (Brielle Goodman) Past Medical/Surgical History: Bipolar (Brielle Goodman) Social History: Single and lives independently but has a team from [facility] that sees him daily. (Brielle Goodman) Physical Exam: General Appearance: Alert, no distress. Tremulous. 167/101, heart rate 115 Eyes: Pupils equal and round. Extraocular motions are all intact. ENT: Mouth: Mucous membranes moist. Respiratory: No wheezing, rhonchi, or rales, lungs are clear to auscultation. Cardiovascular: Regular rate and rhythm. Gastrointestinal: Abdomen is soft and nontender, no masses, no rebound or guarding, bowel sounds normal. Neurological: Alert and oriented x 3, cranial nerves II through XII grossly intact Skin: Warm and dry, no rashes. Musculoskeletal: Nontender to palpate along the cervical, thoracic or lumbar spine. Neck is supple. Extremities: Tender to palpate over the 2nd metacarpal and over the 2nd MCP joint. Also tender to palpate over the 2nd proximal phalanx. No rotational deformities noted. Limited flexion of the left 2nd finger secondary to pain. The other fingers appear on injured. Normal sensation to light touch with normal 2 point discrimination. Strong radial pulse at the left wrist. Psychiatric: Patient is oriented X 3, there is no agitation. (Brielle Goodman) Constitutional: Initial Vital Signs Temperature (C) 36.8 C 10/27/16 11:29 Heart Rate 115 H 10/27/16 11:29 Respiratory Rate 16 10/27/16 11:29 Blood Pressure 167/101 H 10/27/16 11:29 O2 Sat (%) 96 10/27/16 11:29 O2 Delivery Mode Room Air Allergies/Adverse Reactions: clozapine [From Clozaril] Allergy (Verified 11/06/15 09:33) POLLEN Allergy (Mild, Uncoded 11/06/15 09:33) SEASONAL ALLERGY Home Medications: Medication Instructions Recorded Lansoprazole [Prevacid] 30 mg PO DAILY 08/13/16 Levothyroxine [Synthroid 150 mcg 150 mcg PO DAILY10 #0 tab 08/18/16 (*)] Naltrexone HCl [Revia] 50 mg PO HS #0 tab 08/18/16 Pravastatin Sodium [Pravachol] 20 mg PO DAILY #0 tab 08/18/16 Prazosin HCl [Minipress 5mg (*)] 5 mg PO HS #0 cap 08/18/16 QUEtiapine FUMARATE [Seroquel 100 100 mg PO TID PRN #0 tab 08/18/16 mg (*)] Zolpidem Tartrate [Ambien 5MG (*)] 10 mg PO HS #0 tab 08/18/16 Divalproex ER [Depakote ER 500 MG 250 mg PO DAILY 10/27/16 (*)] Fluticasone/Salmeter 100/50Mcg 1 puffs IH BID 10/27/16 [Advair 100/50 (*)] Haloperidol [Haldol 5 MG (*)] 5 mg PO Q2H PRN MDD 3 times a day 10/27/16 [place] Carbonate ER [Eskalith Cr 1,350 mg PO HS 10/27/16 450 mg (*)] Meloxicam [Meloxicam] 7.5 mg PO DAILY 10/27/16 OXcarbazepine [Trileptal 300mg (*)] 300 mg PO BID 10/27/16 QUEtiapine FUMARATE [Seroquel 200 100 mg PO HS 10/27/16 mg (*)] Medical Decision Making ED Course/Re-evaluation: 31-year-old male presents to the emergency department voluntarily feeling depressed and having increasing suicidal thoughts. Patient has been medically cleared. Patient was evaluated by mental health and was placed on an M1 hold and will be admitted to [address] [place] [address]. (Brielle Goodman) Differential Diagnosis: Depression including functional and major depression, situational depression, medication side effect, drugs and alcohol abuse. (Brielle Goodman) Other Provider: The patient was evaluated and managed by the physician facility assistant. I have reviewed this chart and I agree with the findings and plan of care as documented , as indicated by my signature. I am the secondary supervising physician. ( Phuong Singh) - Data Points Laboratory Results: Laboratory Results 10/27/16 11:35 10/27/16 11:35 Departure - Departure Disposition: [facility] IP Clinical Impression: Suicidal ideation Depression Qualifiers: Depression Type: unspecified Qualified Code(s): F32.9 - Major depressive disorder, single episode, unspecified Condition: Good
[2016-10-27 12:13] LABS: ANION GAP 15 mEq/L (8-16); CALCIUM 10.7 mg/dL (8.5-10.4); CARBON DIOXIDE 22 mEq/l (22-31); CHLORIDE 108 mEq/L (97-110); CREATININE 0.9 mg/dL (0.7-1.3); ETHANOL SERUM < 10 mg/dL (0-10); GLOMERULAR FILTRATION RATE > 60; GLUCOSE 104 mg/dL (70-100); POTASSIUM 4.3 mEq/L (3.5-5.2); SODIUM 145 mEq/L (134-144)
[2016-10-27] MEDS: QUEtiapine FUMARATE 200 MG TAB PO SCH (20:26)
[2016-10-27] MEDS: ZOLPIDEM TARTRATE 5 MG TAB PO SCH (20:26)
[2016-10-27] MEDS: NALTREXONE HCL 50 MG TAB PO SCH (20:26)
[2016-10-27] MEDS: PRAZOSIN HCL 5 MG CAP PO SCH (20:26)
[2016-10-27] MEDS ORDERED: LITHIUM CARBONATE 300 MG TAB PO SCH (21:00)
[2016-10-28] MEDS: QUEtiapine FUMARATE 100 MG TAB PO PRN ×2 (08:12→15:39)
[2016-10-28] MEDS ORDERED: MELOXICAM 15MG PO SCH ×2 (09:00→13:30)
[2016-10-28] MEDS ORDERED: HALOPERIDOL 5 MG TAB PO ONE (13:30)
--- NOTE | 2016-10-28 14:15 | BCON ---
[f rep st] BEHAVIORAL HEALTH CONSULTATION DATE OF CONSULTATION: 10/28/2016 REFERRING PHYSICIAN: Yolande Hopson MD REASON FOR CONSULTATION: Medical clearance for inpatient behavioral health stay. HISTORY OF PRESENT ILLNESS: Mr. Cabral came to the emergency department yesterday with a [employer] member, feeling manic and suicidal. The previous day he had taken a dumbbell in his right hand and hit his left hand. The emergency department reports that "he feels like breaking his own bones." He was evaluated by the Mental Health team and admitted for further psychiatric care. He currently is without complaint. He reports that he feels his hand is feeling better and has better range of motion. PAST MEDICAL HISTORY: 1. Asthma. 2. Gastroesophageal reflux disorder. 3. Dyslipidemia. 4. Hypothyroidism. 5. Clostridium difficile diarrhea. 6. Seasonal allergies. 7. Aspiration pneumonia. 8. History of polysubstance abuse. 9. Central auditory processing disorder. 10. Obstructive sleep apnea. 11. Asperger syndrome. PAST SURGICAL HISTORY: 1. Tonsillectomy. 2. Myringotomy tube placements. 3. Bilateral wrist ORIF. 4. Repair of a facial fracture. MEDICATIONS: Prior to admission: 1. Lansoprazole 30 mg p.o. daily. 2. Levothyroxine 150 mg p.o. daily. 3. Naltrexone 50 mg p.o. q.h.s. 4. Pravastatin 20 mg p.o. daily. 5. Prazosin 5 mg p.o. q.h.s. 6. Quetiapine 100 mg t.i.d. p.r.n. 7. Zolpidem 10 mg p.o. q.h.s. 8. Divalproex ER 250 mg p.o. daily. 9. Fluticasone/salmeterol 1 puff b.i.d. 10. Haloperidol 5 mg q.2 hours p.r.n. 11. [place] 1350 mg p.o. q.h.s. 12. Meloxicam 7.5 mg p.o. daily. 13. Oxcarbazepine 300 mg p.o. b.i.d. 14. Quetiapine 100 mg p.o. q.h.s. ALLERGIES: There is an allergy listed to clozapine. SOCIAL HISTORY: He lives alone with support from the [employer]. He has a history of alcohol and tobacco use, but is abstinent from both of these. FAMILY HISTORY: Noncontributory. REVIEW OF SYSTEMS: He reports a volitional 70 pounds weight loss since March and a 12 kg weight loss is documented since his prior psychiatric hospitalization in August. He reports his hand feels better, it does not hurt as much, and his range of motion has returned to as normal as his left hand. Otherwise, a 10-point review of systems is negative. PHYSICAL EXAM: VITAL SIGNS: Blood pressure is 141/85, heart rate is 85, respiratory rate is 16, oxygen saturation is 96% on room air, temperature is 36.8 degrees centigrade, his weight is 94.8 kg for a body mass index of 26.8. GENERAL: This is an overweight appearing man who appears his chronologic age, cooperative, and in no acute distress. HEENT: Extraocular movements are intact. Pupils are equal, round, and reactive to light. Mucous membranes are moist. Dentition is in good condition. NECK: Supple. HEART: Regular rate and rhythm with no murmurs, rubs, or gallops. LUNGS: Clear to auscultation bilaterally. ABDOMEN: Soft, nontender, nondistended with normoactive bowel sounds. EXTREMITIES: There is no cyanosis, clubbing, or edema. There is a faint ecchymosis and slight swelling over the 2nd and 3rd metacarpal area on the dorsal surface of his right hand. Range of motion of his fingers and thumb are within normal limits. NEUROLOGIC: He is alert and oriented x3. Cranial nerves II through XII are grossly intact. There is no focal weakness. Sensation is intact to light touch. He has a fine resting tremor. LABORATORY STUDIES: Drawn in the emergency department: CBC was overall within normal limits. His mean platelet volume was slightly elevated, of no clinical significance. Serum chemistry revealed mild hyponatremia with a sodium of 145. Otherwise, renal function and electrolytes were overall within normal limits. Calcium was slightly high at 10.7, phosphorus was normal. TSH was suppressed at 0.018. Toxicology screen in the serum was negative for ethyl alcohol and in the urine was negative for any substances of abuse. ASSESSMENT AND RECOMMENDATIONS: 1. Mental health issues. Pending further evaluation and management, per Psychiatry and the Mental Health team. 2. Left hand trauma. An x-ray was taken in the Emergency Department which showed no fractures and he is having symptomatic improvement. No further evaluation is indicated. I will prescribe acetaminophen in case he has pain. 3. Volitional weight loss. He is to be encouraged with his weight loss. Primary care might consider re-evaluating his need for cholesterol medication and similarly with his weight loss he may be getting more levothyroxine than he needs. 4. Hypothyroidism with a suppressed TSH. It is conceivable that he is taking more than the prescribed amount of levothyroxine. It this is not the case, he may be able to use a lower dose. It is conceivable that if he is overcorrected on the levothyroxine, too much thyroid medication could be driving some of his behaviors. I have ordered a T3 and a free T4 thyroid hormone tests to further evaluate. Per the chart summary, his outpatient does is 150 mcg daily. It would be reasonable to reduce that dose to 125 mcg daily and have followup as an outpatient in 6 weeks. 5. Tremor. Unclear whether this might result from hyperthyroidism versus adverse effects of psychiatric medications. Possible side effects can certainly be addressed by Psychiatry. Again would consider resuming his levothyroxine at 125 mcg per day rather than 150, and then observing whether not the tremor improves. 6. I see no medical contraindications to the patient's continued stay on the inpatient Behavioral Health Unit or to any psychiatric medications or procedures. Thank you very much for including me in the care of your patient, and please do not hesitate to contact me or the Hospitalist Service should there be need for further medical evaluation. /[id number]/MODL MTDD
[2016-10-28] MEDS ORDERED: HALOPERIDOL 5 MG TAB PO PRN (14:21)
[2016-10-28] MEDS ORDERED: LEVOTHYROXINE 150 MCG TAB PO SCH (14:30)
[2016-10-28] MEDS ORDERED: QUEtiapine FUMARATE 50 MG TAB PO PRN (14:35)
[2016-10-28] MEDS: DIVALPROEX ER 250 MG TAB PO SCH (15:42)
[2016-10-28] MEDS: OXcarbazepine 300 MG TAB PO SCH ×2 (15:42→20:45)
[2016-10-28] MEDS: MELOXICAM 15MG PO SCH (15:48)
[2016-10-28] MEDS: HALOPERIDOL 5 MG TAB PO PRN (17:38)
[2016-10-28 17:59] LABS: T3 (TRIIODOTHYRONINE) TOTAL 1.43 ng/mL (0.970-1.690)
[2016-10-28] MEDS: LITHIUM CARBONATE ER 450 MG TAB PO SCH (20:45)
[2016-10-28] MEDS: QUEtiapine FUMARATE 200 MG TAB PO SCH (20:45)
[2016-10-28] MEDS: PRAZOSIN HCL 5 MG CAP PO SCH (20:45)
[2016-10-28] MEDS: NALTREXONE HCL 50 MG TAB PO SCH (20:45)
[2016-10-28] MEDS: ZOLPIDEM TARTRATE 5 MG TAB PO SCH (20:45)
[2016-10-29] MEDS: MELOXICAM 15MG PO SCH ×3 (08:02→13:29)
[2016-10-29] MEDS: DIVALPROEX ER 250 MG TAB PO SCH (08:02)
[2016-10-29] MEDS: PANTOPRAZOLE SODIUM 40 MG TAB PO SCH (08:02)
[2016-10-29] MEDS: OXcarbazepine 300 MG TAB PO SCH ×2 (08:02→21:12)
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
[2016-10-29] MEDS ORDERED: LEVOTHYROXINE 150 MCG TAB PO SCH ×2 (10:00→15:15)
--- NOTE | 2016-10-29 11:22 | SOAPPROG ---
URIAH Progress Note Assessment/Plan: Assessment: Plan: 10/29/16 11:13 DAY ' U[DATE: Nursing reports pt remains in behavioral conctrol, compliant with cares/ meds, visible in milieu and attending groups; remains blunted and dysphoric but reports feeling safe and better since admission. ON EXAM: presents as calm, cooperative, conversant; continues with dysphoric mood but speaks more easily and is focussed on independent strivings and elaborates on his life planning; also answers questions about h/o using ECT; states both acute and maintenance rx's have been effective but not used this modality for 3+ year - ? for side effect of memory slippage or natural high a/w ECT risking drug relapse; gives permission for me to speak with community psychiatrist and Dr. Leon ASSESSMENT/PLAN: incrementally better; no change in current meds and will continue reintegrative CP d/w Nursing; calls to psychiatrists pending Objective: Vital Signs Temp Pulse Resp BP Pulse Ox 36.9 C 92 14 127/76 H 98 10/29/16 06:00 10/29/16 06:00 10/29/16 06:00 10/29/16 06:00 10/29/16 06:00 ICD10 Worksheet Patient Problems: Problems Problem Status Onset Depression Acute Suicidal ideation Acute Asperger's syndrome Acute Bipolar disorder Acute Bipolar disorder with severe shahnaz Acute Manic behavior Acute allergy to clozapine Acute
[2016-10-29] MEDS: ATORVASTATIN CALCIUM 20 MG TAB PO SCH (13:26)
[2016-10-29] MEDS: QUEtiapine FUMARATE 100 MG TAB PO PRN (14:46)
--- NOTE | 2016-10-29 15:15 | SOAPPROG ---
SOAP Progress Note Assessment/Plan: Assessment: Hypothyroidism, with suppressed TSH on thyroid replacement: will decrease thyroid dose from 150 mcg/day to 125 mcg/day. There may be reduced need for thyroid replacement due to weight loss. Advise repeat TSH in 6 weeks. 10/29/16 15:14 Subjective: Labs reviewed Objective: Vital Signs Temp Pulse Resp BP Pulse Ox 36.9 C 92 14 127/76 H 98 10/29/16 06:00 10/29/16 06:00 10/29/16 06:00 10/29/16 06:00 10/29/16 06:00 ICD10 Worksheet Patient Problems: Problems Problem Status Onset Depression Acute Suicidal ideation Acute Asperger's syndrome Acute Bipolar disorder Acute Bipolar disorder with severe shahnaz Acute Manic behavior Acute allergy to clozapine Acute
[2016-10-29] MEDS: NALTREXONE HCL 50 MG TAB PO SCH (21:11)
[2016-10-29] MEDS: QUEtiapine FUMARATE 100 MG TAB PO SCH (21:11)
[2016-10-29] MEDS: LITHIUM CARBONATE ER 450 MG TAB PO SCH (21:11)
[2016-10-29] MEDS: ZOLPIDEM TARTRATE 5 MG TAB PO SCH (21:11)
[2016-10-29] MEDS: PRAZOSIN HCL 5 MG CAP PO SCH (21:12)
[2016-10-30] MEDS: PANTOPRAZOLE SODIUM 40 MG TAB PO SCH (08:43)
[2016-10-30] MEDS: DIVALPROEX ER 250 MG TAB PO SCH (08:43)
[2016-10-30] MEDS: OXcarbazepine 300 MG TAB PO SCH ×2 (08:43→20:40)
[2016-10-30] MEDS: ATORVASTATIN CALCIUM 20 MG TAB PO SCH (08:43)
[2016-10-30] MEDS: MELOXICAM 15MG PO SCH (08:44)
[2016-10-30] MEDS ORDERED: LEVOTHYROXINE 125 MCG TAB PO SCH (10:00)
[2016-10-30] MEDS: LEVOTHYROXINE 125 MCG TAB PO SCH (10:27)
--- NOTE | 2016-10-30 11:26 | SOAPPROG ---
SOAP Progress Note Assessment/Plan: Assessment: Plan: 10/29/16 11:13 DAY ' U[DATE: Nursing reports pt remains in behavioral conctrol, compliant with cares/ meds, visible in milieu and attending groups; remains blunted and dysphoric but reports feeling safe and better since admission. ON EXAM: presents as calm, cooperative, conversant; continues with dysphoric mood but speaks more easily and is focussed on independent strivings and elaborates on his life planning; also answers questions about h/o using ECT; states both acute and maintenance rx's have been effective but not used this modality for 3+ year - ? for side effect of memory slippage or natural high a/w ECT risking drug relapse; gives permission for me to speak with community psychiatrist and Dr. Leon ASSESSMENT/PLAN: incrementally better; no change in current meds and will continue reintegrative CP d/w Nursing; calls to psychiatrist pendi 10/30/16 DAY ' U[DATE: Nursing reports pt is compliant with cares/med, slept better, more visible in milieu and attending most groups with good participation; he is denying SI to staff and reports an interest in DC. ON EXAM: Pt presents as calm, cooperative, conversant; mood is brighter and pt denies to me also having any self-destructive thoughts or SI; elaborates on his interest and effort in followup to emancipate from parents and establish a more autonomous life with the satisfactions of "being my own man" with pride and productivity; he included the goal of weaning away from the [facility] staff as his primary companions and /caregivers including ending the overnight stays in the predictable future. He agreed to sign in as a Voluntary patient and extend inpt stay thru midday tomorrow. He supports the case review between myself and his community psychiatrist Dr. Redmond. ASSESSMENT/PLAN: imroving course with building intellectual insight and resolving syndromal depression/ no change in current meds; will sign as Voluntary pt; pending contact with community psychiatruist; DC anticipated tomorrow Objective: Vital Signs Temp Pulse Resp BP Pulse Ox 36.3 C 86 16 144/74 H 100 10/30/16 06:00 10/30/16 06:00 10/30/16 06:00 10/30/16 06:00 10/30/16 06:00 ICD10 Worksheet Patient Problems: Problems Problem Status Onset Depression Acute Suicidal ideation Acute Asperger's syndrome Acute Bipolar disorder Acute Bipolar disorder with severe shahnaz Acute Manic behavior Acute allergy to clozapine Acute
[2016-10-30] MEDS: HALOPERIDOL 5 MG TAB PO PRN (12:13)
[2016-10-30] MEDS: LITHIUM CARBONATE ER 450 MG TAB PO SCH (20:39)
[2016-10-30] MEDS: QUEtiapine FUMARATE 100 MG TAB PO SCH (20:40)
[2016-10-30] MEDS: ZOLPIDEM TARTRATE 5 MG TAB PO SCH (20:40)
[2016-10-30] MEDS: PRAZOSIN HCL 5 MG CAP PO SCH (20:40)
[2016-10-30] MEDS: NALTREXONE HCL 50 MG TAB PO SCH (20:40)
[2016-10-30] MEDS: ACETAMINOPHEN 325 MG TAB PO PRN (20:48)
[2016-10-30] MEDS: QUEtiapine FUMARATE 100 MG TAB PO PRN (21:10)
[2016-10-31 06:16] VITALS: BP 133/73; PULSE 94; RESP 15; TEMP 97.8; O2SAT 97
[2016-10-31] MEDS: ACETAMINOPHEN 325 MG TAB PO PRN (07:42)
[2016-10-31] MEDS: OXcarbazepine 300 MG TAB PO SCH (08:02)
[2016-10-31] MEDS: DIVALPROEX ER 250 MG TAB PO SCH (08:03)
[2016-10-31] MEDS: PANTOPRAZOLE SODIUM 40 MG TAB PO SCH (08:03)
[2016-10-31] MEDS: MELOXICAM 15MG PO SCH (08:03)
[2016-10-31] MEDS: ATORVASTATIN CALCIUM 20 MG TAB PO SCH (08:05)
--- NOTE | 2016-10-31 08:32 | SOAPPROG ---
SOAP Progress Note Assessment/Plan: Assessment: Plan: 10/29/16 11:13 DAY ' U[DATE: Nursing reports pt remains in behavioral conctrol, compliant with cares/ meds, visible in milieu and attending groups; remains blunted and dysphoric but reports feeling safe and better since admission. ON EXAM: presents as calm, cooperative, conversant; continues with dysphoric mood but speaks more easily and is focussed on independent strivings and elaborates on his life planning; also answers questions about h/o using ECT; states both acute and maintenance rx's have been effective but not used this modality for 3+ year - ? for side effect of memory slippage or natural high a/w ECT risking drug relapse; gives permission for me to speak with community psychiatrist and Dr. Leon ASSESSMENT/PLAN: incrementally better; no change in current meds and will continue reintegrative CP d/w Nursing; calls to psychiatrist pendi 10/30/16 DAY ' U[DATE: Nursing reports pt is compliant with cares/med, slept better, more visible in milieu and attending most groups with good participation; he is denying SI to staff and reports an interest in DC. ON EXAM: Pt presents as calm, cooperative, conversant; mood is brighter and pt denies to me also having any self-destructive thoughts or SI; elaborates on his interest and effort in followup to emancipate from parents and establish a more autonomous life with the satisfactions of "being my own man" with pride and productivity; he included the goal of weaning away from the [facility] staff as his primary companions and /caregivers including ending the overnight stays in the predictable future. He agreed to sign in as a Voluntary patient and extend inpt stay thru midday tomorrow. He supports the case review between myself and his community psychiatrist Dr. Redmond. ASSESSMENT/PLAN: imroving course with building intellectual insight and resolving syndromal depression/ no change in current meds; will sign as Voluntary pt; pending contact with community psychiatrist; DC anticipated tomorrow 10/31/16 08:31 Objective: Vital Signs Temp Pulse Resp BP Pulse Ox 36.6 C 94 15 133/73 H 97 10/31/16 06:00 10/31/16 06:00 10/31/16 06:00 10/31/16 06:00 10/31/16 06:00 ICD10 Worksheet Patient Problems: Problems Problem Status Onset Depression Acute Suicidal ideation Acute Asperger's syndrome Acute Bipolar disorder Acute Bipolar disorder with severe shahnaz Acute Manic behavior Acute allergy to clozapine Acute
--- NOTE | 2016-10-31 09:23 | SOAPPROG ---
SOAP Progress Note Assessment/Plan: Assessment: Plan: 10/29/16 11:13 DAY ' U[DATE: Nursing reports pt remains in behavioral conctrol, compliant with cares/ meds, visible in milieu and attending groups; remains blunted and dysphoric but reports feeling safe and better since admission. ON EXAM: presents as calm, cooperative, conversant; continues with dysphoric mood but speaks more easily and is focussed on independent strivings and elaborates on his life planning; also answers questions about h/o using ECT; states both acute and maintenance rx's have been effective but not used this modality for 3+ year - ? for side effect of memory slippage or natural high a/w ECT risking drug relapse; gives permission for me to speak with community psychiatrist and Dr. Leon ASSESSMENT/PLAN: incrementally better; no change in current meds and will continue reintegrative CP d/w Nursing; calls to psychiatrist pendi 10/30/16 DAY ' U[DATE: Nursing reports pt is compliant with cares/med, slept better, more visible in milieu and attending most groups with good participation; he is denying SI to staff and reports an interest in DC. ON EXAM: Pt presents as calm, cooperative, conversant; mood is brighter and pt denies to me also having any self-destructive thoughts or SI; elaborates on his interest and effort in followup to emancipate from parents and establish a more autonomous life with the satisfactions of "being my own man" with pride and productivity; he included the goal of weaning away from the [facility] staff as his primary companions and /caregivers including ending the overnight stays in the predictable future. He agreed to sign in as a Voluntary patient and extend inpt stay thru midday tomorrow. He supports the case review between myself and his community psychiatrist Dr. Redmond. ASSESSMENT/PLAN: imroving course with building intellectual insight and resolving syndromal depression/ no change in current meds; will sign as Voluntary pt; pending contact with community psychiatrist; DC anticipated tomorro 10/31/16 09:10 DAY '/ Brief Discharge Note UPDATE: Nursing reports pt continues to manage stable, sleeping, residual mild dysphoric; deneis SI but does fleeting self-injurious thoughts which he states he "easily" controls and is part of his subacute baseline; positive about upcoming DC today. ON EXAM: pesents as calm, cooperative, conversant; stable presentation; able to detail the news yesterday about his dog stopping chemotherapy and moving into palliative phase for his terminal cancer; pt understands that dog's more imminent and describes his "grief" process and strategies to manage this; also reviewed followup treatment plan with attendant short-term and long-term goals; meds reviewed and no changes to be made; will meet with pt and gas brazer about 110o to finalize DC ASSESSMENT/PLAN: stable for dC today DC to return to community rx plan with [facility] and Dr Redmond -[facility] psychiatrist still pending Med as referenced; no scripts at DC as pt has ample home supply See DC Summary 10/31/16 09:23 Medications Generic Name Dose Route Start Last Admin Trade Name Freq PRN Reason Stop Dose Admin Acetaminophen 650 mg 12/14/14 11:31 Tylenol Tablet PO 06/12/15 11:30 Q4 PRN Pain, Mild Pantoprazole Sodium 40 mg 12/15/14 09:00 12/18/14 11:07 Protonix PO 06/13/15 08:59 40 mg DAILY AMY Pravastatin Sodium 20 mg 12/14/14 13:00 12/18/14 11:07 Pravachol PO 06/12/15 12:59 20 mg DAILY AMY Prazosin HCl 2 mg 12/16/14 21:00 12/17/14 19:03 Minipress PO 06/14/15 20:59 2 mg HS AMY Acetaminophen 650 mg 10/28/16 13:31 10/31/16 07:42 Tylenol PO 04/26/17 13:30 650 mg Q6HRS PRN Pain, Mild/Fever, Can Take PO Quetiapine Fumarate 50 mg 10/28/16 14:35 Seroquel PO 04/26/17 14:34 HS PRN Sleep/Insomnia Quetiapine Fumarate 100 mg 10/29/16 21:00 10/30/16 20:40 Seroquel PO 04/27/17 20:59 100 mg HS AMY Albuterol 1 puffs 12/14/14 12:53 Proventil Inhaler IH 06/12/15 12:52 BID PRN Short of Breath/Dyspnea Cetirizine HCl 10 mg 12/14/14 12:47 Zyrtec PO 06/12/15 12:46 DAILY PRN ALLERGIES Divalproex Sodium 500 mg 12/14/14 13:00 12/18/14 11:08 Depakote Er PO 06/12/15 12:59 500 mg DAILY AMY Divalproex Sodium 1,500 mg 12/14/14 21:00 12/17/14 19:01 Depakote Er PO 06/12/15 20:59 1,500 mg HS AMY Fluoxetine HCl 10 mg 12/14/14 13:30 12/18/14 11:07 Prozac PO 06/12/15 13:29 10 mg DAILY AMY Levothyroxine Sodium 150 mcg 12/14/14 13:00 12/18/14 06:00 Synthroid PO 06/12/15 12:59 150 mcg DAILY06 AMY Naltrexone HCl 50 mg 12/14/14 21:00 12/17/14 19:02 Revia PO 06/12/15 20:59 50 mg HS AMY Paliperidone 3 mg 12/14/14 13:00 12/18/14 11:07 Invega PO 06/12/15 12:59 3 mg BID AMY Quetiapine Fumarate 100 mg 12/14/14 12:19 12/17/14 12:38 Seroquel PO 06/12/15 12:18 100 mg TID PRN Agitation Quetiapine Fumarate 300 mg 12/15/14 21:00 12/17/14 19:03 Seroquel PO 06/13/15 20:59 300 mg HS AMY Fluticasone/Salmeterol 1 puffs 12/14/14 13:00 12/18/14 11:06 Advair IH 06/12/15 12:59 1 puffs BID AMY Atorvastatin Calcium 20 mg 10/29/16 11:30 10/31/16 08:05 Lipitor PO 04/27/17 11:29 20 mg DAILY AMY Divalproex Sodium 250 mg 10/28/16 15:00 10/31/16 08:03 Depakote Er PO 04/26/17 14:59 250 mg DAILY AMY Haloperidol 5 mg 10/28/16 14:44 10/30/16 12:13 Haldol PO 04/26/17 14:43 5 mg Q2H PRN Agitation Levothyroxine Sodium 125 mcg 10/30/16 10:00 10/30/16 10:27 Synthroid PO 04/28/17 09:59 125 mcg DAILY@1000 [facility] [place] Carbonate 1,350 mg 10/28/16 21:00 10/30/16 20:39 Eskalith Cr PO 04/26/17 20:59 1,350 mg HS [facility] Miscellaneous Medication 0 ea 10/29/16 12:15 10/31/16 08:03 Non-Formulary PO 04/27/17 12:14 0.5 tab DAILY [facility] Naltrexone HCl 50 mg 10/27/16 21:00 10/30/16 20:40 Revia PO 04/25/17 20:59 50 mg HS [facility] Oxcarbazepine 300 mg 10/28/16 15:00 10/31/16 08:02 Trileptal PO 04/26/17 14:59 300 mg BID [facility] Pantoprazole Sodium 40 mg 10/29/16 09:00 10/31/16 08:03 Protonix PO 04/27/17 08:59 40 mg DAILY [facility] Prazosin HCl 5 mg 10/27/16 21:00 10/30/16 20:40 Minipress PO 04/25/17 20:59 5 mg HS [facility] Quetiapine Fumarate 100 mg 10/27/16 19:14 10/30/16 21:10 Seroquel PO 04/25/17 19:13 100 mg TID PRN Agitation/Insomnia Zolpidem Tartrate 10 mg 10/27/16 21:00 10/30/16 20:40 Ambien PO 04/25/17 20:59 10 mg HS [facility] Objective: Vital Signs Temp Pulse Resp BP Pulse Ox 36.6 C 94 15 133/73 H 97 10/31/16 06:00 10/31/16 06:00 10/31/16 06:00 10/31/16 06:00 10/31/16 06:00 ICD10 Worksheet Patient Problems: Problems Problem Status Onset Depression Acute Suicidal ideation Acute Asperger's syndrome Acute Bipolar disorder Acute Bipolar disorder with severe shahnaz Acute Manic behavior Acute allergy to clozapine Acute
[2016-10-31] MEDS: LEVOTHYROXINE 125 MCG TAB PO SCH (10:57)
== END 2016-10-31 11:42 | disposition home or self-care (01) | DRG 881 ==
LOC: BBEH 17:25
PROVIDERS: ADMIT Psychiatry & Neurology Psychiatry; ATTEND Psychiatry & Neurology Psychiatry
DX: F32.9 Major depressive disorder, single episode, unspecified (principal); S60.222A Contusion of left hand, initial encounter; X79.XXXA Intentional self-harm by blunt object, initial encounter; Y92.9 Unspecified place or not applicable; E03.9 Hypothyroidism, unspecified; F84.5 Asperger's syndrome; J45.909 Unspecified asthma, uncomplicated; K21.9 Gastro-esophageal reflux disease without esophagitis; E78.5 Hyperlipidemia, unspecified; G47.33 Obstructive sleep apnea (adult) (pediatric)
CPT/HCPCS: 80305; 84480-90; G0480

== ENCOUNTER 2016-12-13 14:43 | Emergency (ER) | payer OTHER, MEDICAID ==
[2016-12-13 15:04] VITALS: TEMP 98.4
[2016-12-13] MEDS ORDERED: OLANZapine DISINTEGR 10 MG TAB PO ONE (15:12)
--- NOTE | 2016-12-13 15:23 | EDPHY ---
H & P Stated Complaint: needs psych eval/increasing shahnaz and paranoia - Personal History Current Tetanus/Diphtheria Vaccine: Yes Tetanus Vaccine Date: 2006 - Medical/Surgical History Hx Asthma: Yes Hx Chronic Respiratory Disease: No Hx Diabetes: No Hx Cardiac Disease: No Hx Renal Disease: No Hx Cirrhosis: No Hx Alcoholism: Yes Hx HIV/AIDS: No Hx Splenectomy or Spleen Trauma: No Other PMH: Medical- autism, depression, hypothyroid, ECT therapy. etoh, substance abuse, cutter, GERD, Reports recent Dx of Bipolar II & asthma. Surg- orbital, wrist, tonsilectomy, eustachian tubes - Social History Smoking Status: Former smoker Time Seen by Provider: 12/13/16 15:06 HPI/ROS: CHIEF COMPLAINT: "I'm feeling manic" HISTORY OF PRESENT ILLNESS: 31-year-old male history of mood disorder, attends the [facility] program, in the ER with his [facility] program therapist for complaints of increasing thoughts of paranoia, visual hallucination, medication noncompliance, "I feel like I'm manic". Denies suicidal or homicidal ideation. States that when he starts developing these symptoms they can quickly escalate unless he is hospitalized.Denies physical pain complaints. REVIEW OF SYSTEMS: A ten point review of systems was performed and is negative with the exception of the items mentioned in the HPI PAST MEDICAL & SURGICAL HISTORY: mood disorder SOCIAL HISTORY:denies alcohol use PHYSICAL EXAM (Prior to examination, patient consented to physical exam, hands were washed and my usual and customary physical exam procedures followed) 1) GENERAL: Well-developed, well-nourished, alert and oriented. depressed, flat affect 2) HEAD: Normocephalic, atraumatic 3) HEENT: Pupils equal, round, reactive to light bilaterally 4) NECK: Full range of motion, no meningeal signs. 5) LUNGS: Clear auscultation bilaterally 6) HEART: Regular rate and rhythm 7) ABDOMEN: No guarding, no rebound, no focal tenderness, 8) MUSCULOSKELETAL: No signs of acute trauma. 9) BACK: no visual or palpable abnormality. 10) SKIN: No rash, no petechiae. [11) Psychiatric: Patient is oriented X 3, there is no agitation. Calm. Depressed, flat affect DIFFERENTIAL DIAGNOSIS: In no particular order including but not limited to suicidal ideation, homicidal ideation, depression, mood disorder (Sherman,Purnima Craft) Constitutional: Initial Vital Signs Temperature (C) 36.9 C 12/13/16 15:01 Heart Rate 94 12/13/16 15:01 Respiratory Rate 17 12/13/16 15:01 Blood Pressure 144/96 H 12/13/16 15:01 O2 Sat (%) 97 12/13/16 15:01 O2 Delivery Mode Room Air Allergies/Adverse Reactions: clozapine [From Clozaril] Allergy (Verified 12/13/16 14:59) lorazepam [From Ativan] Allergy (Verified 12/13/16 17:47) POLLEN Allergy (Mild, Uncoded 11/06/15 09:33) SEASONAL ALLERGY Home Medications: Medication Instructions Recorded Lansoprazole [Prevacid] 30 mg PO DAILY 08/13/16 Pravastatin Sodium [Pravachol] 20 mg PO DAILY #0 tab 08/18/16 Prazosin HCl [Minipress 5mg (*)] 5 mg PO HS #0 cap 08/18/16 QUEtiapine FUMARATE [Seroquel 100 100 mg PO TID PRN #0 tab 08/18/16 mg (*)] Zolpidem Tartrate [Ambien 5MG (*)] 10 mg PO HS #0 tab 08/18/16 Divalproex ER [Depakote ER 500 MG 250 mg PO DAILY 10/27/16 (*)] Fluticasone/Salmeter 100/50Mcg 1 puffs IH BID 10/27/16 [Advair 100/50 (*)] [place] Carbonate ER [Eskalith Cr 1,350 mg PO HS 10/27/16 450 mg (*)] Meloxicam [Meloxicam] 7.5 mg PO DAILY 10/27/16 OXcarbazepine [Trileptal 300mg (*)] 300 mg PO BID 10/27/16 QUEtiapine FUMARATE [Seroquel 200 100 mg PO HS 10/27/16 mg (*)] Acetaminophen [Tylenol 325mg (*)] 650 mg PO Q6HRS PRN #0 tab 10/31/16 [place] Carbonate ER [Eskalith Cr 1,350 mg PO HS #0 tab 10/31/16 450 mg (*)] Naltrexone HCl [Revia] 50 mg PO HS #0 tab 10/31/16 QUEtiapine FUMARATE [Seroquel 100 100 mg PO TID PRN #0 tab 10/31/16 mg (*)] QUEtiapine FUMARATE [Seroquel 50 50 mg PO HS PRN #0 tab 10/31/16 mg (*)] Zyprexa 12/13/16 Medical Decision Making ED Course/Re-evaluation: 5 pm: Care turned over to Dr Cantu. Awaiting mental health partners evaluation. Patient remains calm, cooperative. (Purnima Whitaker) Other Provider: PHYSICIAN DOCUMENTATION: The patient was evaluated and managed by the Physician Wire Preparation Worker and myself. I have reviewed the chart and agree with the findings and plan of care as documented. In addition, I examined the patient myself at 2216. History confirmed as I feel much better after I took a Zyprexa. Physical findings as follows: Calm, cooperative, wants to go home. Not currently hallucinating, much less paranoid. Patient was initially placed on a mental health hold by myself in conjunction with Eliz the electrical maintenance technician for grave disability and increasing paranoid ideation. 2220: Patient will be discharged at the recommendation of cloud consultant psychiatrist Dr. Kathy Geller to his parents who are in agreement. I am the secondary supervising physician. (Zhao Cantu) - Data Points Laboratory Results: Laboratory Results 12/13/16 15:20 12/13/16 15:20 12/13/16 12/13/16 12/13/16 15:45 15:20 15:20 WBC 10.19 10^3/uL H 10^3/uL (3.80-9.50) RBC 5.21 10^6/uL 10^6/uL (4.40-6.38) Hgb 15.8 g/dL g/dL (13.7-17.5) Hct 47.3 % % (40.0-51.0) MCV 90.8 fL fL (81.5-99.8) MCH 30.3 pg pg (27.9-34.1) MCHC 33.4 g/dL g/dL (32.4-36.7) RDW 12.8 % % (11.5-15.2) Plt Count 316 10^3/uL 10^3/uL (150-400) MPV 11.2 fL fL (8.7-11.7) Neut % (Auto) 67.8 % % (39.3-74.2) Lymph % (Auto) 25.6 % % (15.0-45.0) [place] % (Auto) 5.5 % % (4.5-13.0) Eos % (Auto) 0.4 % L % (0.6-7.6) Baso % (Auto) 0.3 % % (0.3-1.7) Nucleat RBC Rel Count 0.0 % % (0.0-0.2) Absolute Neuts (auto) 6.91 10^3/uL H 10^3/uL (1.70-6.50) Absolute Lymphs (auto) 2.61 10^3/uL 10^3/uL (1.00-3.00) Absolute Monos (auto) 0.56 10^3/uL 10^3/uL (0.30-0.80) Absolute Eos (auto) 0.04 10^3/uL 10^3/uL (0.03-0.40) Absolute Basos (auto) 0.03 10^3/uL 10^3/uL (0.02-0.10) Absolute Nucleated RBC 0.00 10^3/uL 10^3/uL (0-0.01) Immature Gran % 0.4 % % (0.0-1.1) Immature Gran # 0.04 10^3/uL 10^3/uL (0.00-0.10) Sodium 147 mEq/L H mEq/L (134-144) Potassium 3.9 mEq/L mEq/L (3.5-5.2) Chloride 108 mEq/L mEq/L (97-110) Carbon Dioxide 23 mEq/l mEq/l (22-31) Anion Gap 16 mEq/L mEq/L (8-16) BUN 7 mg/dL mg/dL (7-23) Creatinine 0.9 mg/dL mg/dL (0.7-1.3) Estimated GFR > 60 Glucose 88 mg/dL mg/dL (70-100) Calcium 10.5 mg/dL H mg/dL (8.5-10.4) Salicylates < 1.0 mg/dL L mg/dL (2.0-20.0) Urine Opiates Screen NEGATIVE (NEGATIVE) Acetaminophen < 10 mcg/mL L mcg/mL (10.0-30.0) Urine Barbiturates NEGATIVE (NEGATIVE) Ur Phencyclidine Scrn NEGATIVE (NEGATIVE) Ur Amphetamine Screen NEGATIVE (NEGATIVE) U Benzodiazepines Scrn NEGATIVE (NEGATIVE) Urine Cocaine Screen NEGATIVE (NEGATIVE) U Marijuana (THC) Screen NEGATIVE (NEGATIVE) Ethyl Alcohol < 10 mg/dL mg/dL (0-10) Medications Given: Discontinued Medications Olanzapine (Zyprexa Zydis) 10 mg PO EDNOW ONE Stop: 12/13/16 15:13 Last Admin: 12/13/16 15:15 Dose: 10 mg Departure - Departure Disposition: Home, Routine, Self-Care Clinical Impression: Bipolar disorder Condition: Good Instructions: Bipolar Disorder (ED) Referrals: Sami Armenta MD [Primary Care Provider] - As per Instructions
[2016-12-13 15:35] LABS: % IMMATURE GRANULYOCYTES 0.4 % (0.0-1.1); ABSOLUTE IMMATURE GRANULOCYTES 0.04 10^3/uL (0.00-0.10); ADD DIFF? NO; ADD MORPH? NO; ADD SCAN? NO; ATYPICAL LYMPHOCYTE FLAG 10 (0-99); FRAGMENT RBC FLAG 0 (0-99); HEMATOCRIT 47.3 % (40.0-51.0); HEMOGLOBIN 15.8 g/dL (13.7-17.5); LEFT SHIFT FLG 0 (0-99); LIPEMIA HEMOLYSIS FLAG 80 (0-99); MEAN CELL HEMOGLOBIN 30.3 pg (27.9-34.1); MEAN CELL HEMOGLOBIN CONCENTR. 33.4 g/dL (32.4-36.7); MEAN CELL VOLUME 90.8 fL (81.5-99.8); MEAN PLATELET VOLUME 11.2 fL (8.7-11.7); PLATELET CLUMPS FLAG 0 (0-99); PLATELET COUNT 316 10^3/uL (150-400); RED BLOOD CELL COUNT 5.21 10^6/uL (4.40-6.38); RED CELL DISTRIBUTION WIDTH 12.8 % (11.5-15.2)
[2016-12-13 15:53] LABS: ANION GAP 16 mEq/L (8-16); CALCIUM 10.5 mg/dL (8.5-10.4); CARBON DIOXIDE 23 mEq/l (22-31); CHLORIDE 108 mEq/L (97-110); CREATININE 0.9 mg/dL (0.7-1.3); ETHANOL SERUM < 10 mg/dL (0-10); GLOMERULAR FILTRATION RATE > 60; GLUCOSE 88 mg/dL (70-100); POTASSIUM 3.9 mEq/L (3.5-5.2); SALICYLATE < 1.0 mg/dL (2.0-20.0); SODIUM 147 mEq/L (134-144)
[2016-12-13 16:28] VITALS: RESP 16
[2016-12-13 22:29] VITALS: BP 149/89; PULSE 81; O2SAT 96
== END 2016-12-13 22:33 | disposition home or self-care (01) ==
DX: F31.9 Bipolar disorder, unspecified (principal); J45.909 Unspecified asthma, uncomplicated; Z87.891 Personal history of nicotine dependence
CPT/HCPCS: 80305; G0480

== ENCOUNTER 2017-04-10 20:43 | Emergency (ER) | payer MEDICAID, OTHER ==
[2017-04-10 20:48] VITALS: RESP 16; TEMP 98.1
--- NOTE | 2017-04-10 21:24 | EDPHY ---
H & P Time Seen by Provider: 04/10/17 21:23 HPI/ROS: Chief complaint. CHIEF COMPLAINT: abdominal pain HPI. Patient is a 31-year-old male with abdominal pain that started this evening. He tells me he masturbated at 6:00 p.m. and there was no ejaculation. He then developed mid abdominal pain that is described as dull. Some low back pain as well. No nausea or vomiting. Positive diarrhea. Decreased urination but no pain or burning with urination. The patient began a new medication,Fanapt, 1 week ago which can cause sexual dysfunction. He called his psychiatrist who recommended that he stop the Fanapt. He has had no previous abdominal surgery. He has had C difficile in the past. ROS Constitutional. no fever/chills, no weakness Eyes. no problems with vision ENT. no sore throat, no nasal drainage Cardiovascular. no chest pain Respiratory. no shortness of breath, no cough Abdominal. Abdominal pain with diarrhea . no problems urinating though decreased urination MS. no calf pain/swelling, no neck/back pain, no joint pain Skin. no rash Lymph. no swollen glands Neuro. no headache, no dizziness, no difficulty walking or with speech Past Medical/Surgical History: Past medical history autism, depression, hypothyroid, alcoholism, substance abuse, self harm, GERD, bipolar, asthma, C diff Social History: Single, nonsmoker, no alcohol Smoking Status: Former smoker Physical Exam: General Appearance: Alert well-developed male mild distress vital signs are stable Eyes: Pupils equal and round no pallor or injection. ENT, Mouth: Mucous membranes are moist. Respiratory: There are no retractions, lungs are clear to auscultation. Cardiovascular: Regular rate and rhythm. Gastrointestinal: Abdomen is soft with mild periumbilical tenderness. No masses. Normal bowel sounds Neurological: Awake and alert, sensory and motor exams grossly normal. Skin: Warm and dry, no rashes. Musculoskeletal: Neck is supple nontender. Extremities symmetrical, full range of motion. Psychiatric: Patient is oriented X 3, there is no agitation. Constitutional: Initial Vital Signs Temperature (C) 36.7 C 04/10/17 20:44 Heart Rate 93 04/10/17 20:44 Respiratory Rate 16 04/10/17 20:44 Blood Pressure 174/108 H 04/10/17 20:44 O2 Sat (%) 97 04/10/17 20:44 O2 Delivery Mode Room Air Allergies/Adverse Reactions: clozapine [From Clozaril] Allergy (Verified 12/13/16 14:59) lorazepam [From Ativan] Allergy (Verified 12/13/16 17:47) POLLEN Allergy (Mild, Uncoded 11/06/15 09:33) SEASONAL ALLERGY Home Medications: Medication Instructions Recorded Lansoprazole [Prevacid] 30 mg PO DAILY 08/13/16 Pravastatin Sodium [Pravachol] 20 mg PO DAILY #0 tab 08/18/16 OXcarbazepine [Trileptal 300mg (*)] 300 mg PO BID 10/27/16 QUEtiapine FUMARATE [Seroquel 200 100 mg PO HS 10/27/16 mg (*)] [place] Carbonate ER [Eskalith Cr 1,350 mg PO HS #0 tab 10/31/16 450 mg (*)] Naltrexone HCl [Revia] 50 mg PO HS #0 tab 10/31/16 Ambien 04/10/17 Coq10 04/10/17 Fanapt 04/10/17 Levothyroxine 04/10/17 Prazosin HCl 04/10/17 Trileptal 04/10/17 l-Methylfolate Calcium 04/10/17 Medical Decision Making - Diagnostics Imaging Results: Imaging Impressions Abdomen X-Ray 04/10/17 21:41 Impression: Normal two-view abdomen series. Abdomen CT 04/10/17 22:26 Impression: 1. Normal CT abdomen and pelvis with contrast enhancement. 2. No CT evidence of appendicitis, abscess or bowel obstruction. 3. Stable mild compression superior endplate of L1 and curvilinear calcification pattern left femoral head that has actually retracted since the prior studies possibly from avascular necrosis or previous bone infarct. Findings discussed with Aditya Looney M.D. at 23:03 hour, 04/10/2017. Upright KUB reviewed by me and consistent with mild constipation. No evidence of air-fluid levels or free air Procedures: IV normal saline. IV Toradol ED Course/Re-evaluation: 10:45 p.m. patient complaining of further abdominal pain after the Toradol. IV morphine was initially ordered but is contraindicated as the patient is on naltrexone. Patient and I discussed lab and imaging study results we discussed treatment plan including recommendation for CT for further evaluation. He expresses understanding and agreement Re-evaluation at 11:10 p.m.. Patient is stable. He and I discussed imaging studies, treatment plan including criteria for return importance of follow-up and further evaluation. He expresses understanding and agreement Differential Diagnosis: I considered diverticulitis, urinary tract infection, appendicitis. - Data Points Laboratory Results: Laboratory Results 04/10/17 21:15 04/10/17 21:15 04/10/17 04/10/17 04/10/17 23:03 21:15 21:15 WBC 11.81 10^3/uL H 10^3/uL (3.80-9.50) RBC 4.85 10^6/uL 10^6/uL (4.40-6.38) Hgb 14.9 g/dL g/dL (13.7-17.5) Hct 44.7 % % (40.0-51.0) MCV 92.2 fL fL (81.5-99.8) MCH 30.7 pg pg (27.9-34.1) MCHC 33.3 g/dL g/dL (32.4-36.7) RDW 13.5 % % (11.5-15.2) Plt Count 277 10^3/uL 10^3/uL (150-400) MPV 11.8 fL H fL (8.7-11.7) Neut % (Auto) 58.3 % % (39.3-74.2) Lymph % (Auto) 34.0 % % (15.0-45.0) [place] % (Auto) 6.0 % % (4.5-13.0) Eos % (Auto) 1.1 % % (0.6-7.6) Baso % (Auto) 0.3 % % (0.3-1.7) Nucleat RBC Rel Count 0.0 % % (0.0-0.2) Absolute Neuts (auto) 6.88 10^3/uL H 10^3/uL (1.70-6.50) Absolute Lymphs (auto) 4.01 10^3/uL H 10^3/uL (1.00-3.00) Absolute Monos (auto) 0.71 10^3/uL 10^3/uL (0.30-0.80) Absolute Eos (auto) 0.13 10^3/uL 10^3/uL (0.03-0.40) Absolute Basos (auto) 0.04 10^3/uL 10^3/uL (0.02-0.10) Absolute Nucleated RBC 0.00 10^3/uL 10^3/uL (0-0.01) Immature Gran % 0.3 % % (0.0-1.1) Immature Gran # 0.04 10^3/uL 10^3/uL (0.00-0.10) Sodium 140 mEq/L mEq/L (134-144) Potassium 3.6 mEq/L mEq/L (3.5-5.2) Chloride 104 mEq/L mEq/L (97-110) Carbon Dioxide 24 mEq/l mEq/l (22-31) Anion Gap 12 mEq/L mEq/L (8-16) BUN 9 mg/dL mg/dL (7-23) Creatinine 0.9 mg/dL mg/dL (0.7-1.3) Estimated GFR > 60 Glucose 94 mg/dL mg/dL (70-100) Calcium 10.3 mg/dL mg/dL (8.5-10.4) Lipase 150 IU/L IU/L (23-300) Urine Color Pending Urine Appearance Pending Urine pH Pending Ur Specific [place] Pending Urine Protein Pending Urine Ketones Pending Urine Blood Pending Urine Nitrate Pending Urine Bilirubin Pending Urine Urobilinogen Pending Ur Leukocyte Esterase Pending Urine RBC Pending Urine WBC Pending Ur Epithelial Cells Pending Urine Glucose Pending Medications Given: Discontinued Medications Sodium Chloride (Ns) 1,000 mls @ 0 mls/hr IV EDNOW ONE; Wide Open PRN Reason: Protocol Stop: 04/10/17 21:42 Last Admin: 04/10/17 21:47 Dose: 1,000 mls Ketorolac Tromethamine (Toradol) 30 mg IVP EDNOW ONE Stop: 04/10/17 21:45 Last Admin: 04/10/17 21:52 Dose: 30 mg Departure - Departure Disposition: Home, Routine, Self-Care Clinical Impression: Abdominal pain Qualifiers: Abdominal location: periumbilical Qualified Code(s): R10.33 - Periumbilical pain Condition: Good Instructions: Constipation (ED) Additional Instructions: Increased fluids including fruit and prune juice. Continue your regular medications. However. Stop the Fanapt. Tylenol for discomfort. Return for worsening pain, fever the. Recheck in 1-2 days for continuing symptoms Referrals: Sami Armenta MD [Primary Care Provider] - 2-3 days, if not improved
[2017-04-10] MEDS ORDERED: NS 1,000 ML IV ONE (21:41)
[2017-04-10] MEDS ORDERED: KETOROLAC 30 MG/1 ML SDV IVP ONE (21:44)
[2017-04-10 21:45] LABS: % IMMATURE GRANULYOCYTES 0.3 % (0.0-1.1); ABSOLUTE IMMATURE GRANULOCYTES 0.04 10^3/uL (0.00-0.10); ADD DIFF? NO; ADD MORPH? NO; ADD SCAN? NO; ATYPICAL LYMPHOCYTE FLAG 0 (0-99); FRAGMENT RBC FLAG 0 (0-99); HEMATOCRIT 44.7 % (40.0-51.0); HEMOGLOBIN 14.9 g/dL (13.7-17.5); LEFT SHIFT FLG 0 (0-99); LIPEMIA HEMOLYSIS FLAG 80 (0-99); MEAN CELL HEMOGLOBIN 30.7 pg (27.9-34.1); MEAN CELL HEMOGLOBIN CONCENTR. 33.3 g/dL (32.4-36.7); MEAN CELL VOLUME 92.2 fL (81.5-99.8); MEAN PLATELET VOLUME 11.8 fL (8.7-11.7); PLATELET CLUMPS FLAG 10 (0-99); PLATELET COUNT 277 10^3/uL (150-400); RED BLOOD CELL COUNT 4.85 10^6/uL (4.40-6.38); RED CELL DISTRIBUTION WIDTH 13.5 % (11.5-15.2)
[2017-04-10 21:51] LABS: ANION GAP 12 mEq/L (8-16); CALCIUM 10.3 mg/dL (8.5-10.4); CARBON DIOXIDE 24 mEq/l (22-31); CHLORIDE 104 mEq/L (97-110); CREATININE 0.9 mg/dL (0.7-1.3); GLOMERULAR FILTRATION RATE > 60; GLUCOSE 94 mg/dL (70-100); POTASSIUM 3.6 mEq/L (3.5-5.2); SODIUM 140 mEq/L (134-144)
[2017-04-10] MEDS ORDERED: IOPAMIDOL (ISOVUE-300) 100 ML BTL ONE (22:36)
[2017-04-10 23:11] LABS: COLOR PALE YELLOW; LEUKOCYTE ESTERASE,URINE NEGATIVE (NEGATIVE); NITRITE,URINE NEGATIVE (NEGATIVE)
[2017-04-10 23:19] LABS: MUCUS TRACE /lpf (NONE-1+)
[2017-04-10 23:43] VITALS: BP 149/106; PULSE 88; O2SAT 96
== END 2017-04-10 23:43 | disposition home or self-care (01) ==
DX: R10.33 Periumbilical pain (principal); J45.909 Unspecified asthma, uncomplicated; E86.9 Volume depletion, unspecified; Z87.891 Personal history of nicotine dependence
CPT/HCPCS: 96374; J1885; Q9967